=== PATIENT | male | born 1955 | race Asian ===

== ENCOUNTER 2018-11-23 00:31 | Emergency (ER) | payer OTHER ==
[~2018-11-23] VITALS: Ht 170.2 cm; Wt 136.4 kg
[~2018-11-23 00:31] MED LIST: BENA5TAB26 PO; CLON-570 PO; FURO20 PO; METO25 PO
[2018-11-23] MEDS ORDERED: METF-960 PO (00:56)
[2018-11-23] MEDS ORDERED: SITA25 PO (00:56)
[2018-11-23] MEDS ORDERED: FLUCONAZOLE 200 MG TABLET PO ONE (02:00)
[2018-11-23] MEDS ORDERED: KETOROLAC TROMETHAMINE 30 MG/ML VIAL IM ONE (02:00)
[2018-11-23] MEDS ORDERED: NYSTATIN 15 GM POWDER BOTTLE TP ONE (02:00)
[2018-11-23 02:38] VITALS: BP 148/64
== END 2018-11-23 02:39 | disposition home or self-care (01) ==
LOC: EMS 00:31
DX: B37.9 Candidiasis, unspecified (principal); E11.9 Type 2 diabetes mellitus without complications; I25.10 Atherosclerotic heart disease of native coronary artery without angina pectoris; I11.0 Hypertensive heart disease with heart failure; I50.9 Heart failure, unspecified; L40.9 Psoriasis, unspecified; Z79.899 Other long term (current) drug therapy
CPT/HCPCS: 82962; 96372; 99283; J1885

== ENCOUNTER 2019-03-23 15:24 | Inpatient (IN) | payer OTHER ==
[~2019-03-23] VITALS: Ht 170.2 cm; Wt 113.7 kg
[~2019-03-23 15:24] MED LIST changes: -CLON-570 PO; +CLON0.1T83 PO; +METF-960 PO; +SITA25 PO
[2019-03-23 15:41] LABS: GLUCOSE,POINT OF CARE 157 MG/DL (70-110)
[2019-03-23] MEDS ORDERED: SODIUM CHLORIDE 0.9% 1,000 ML IV ONE ×3 (15:48→18:15)
[2019-03-23] MEDS ORDERED: VANCOMYCIN HCL 1 GM/D5% WATER 200 ML IV ONE (16:00)
[2019-03-23] MEDS ORDERED: ACETAMINOPHEN 500 MG TABLET PO ONE (16:00)
[2019-03-23] MEDS ORDERED: PIPERACILLIN/TAZO 3.375 GM/D5W 50 ML IV ONE (16:00)
[2019-03-23 16:57] LABS: HEMATOCRIT 42.9 % (41-53); HEMOGLOBIN 13.9 g/dL (13.5-17.5); MEAN CORPUSCULAR HEMOGLOBIN 30.4 pg (26.0-34.0); MEAN CORPUSCULAR HGB CONC 32.4 G/dL (31.0-37.0); MEAN CORPUSCULAR VOLUME 94 fL (80-100); PLATELET COUNT (AUTO) 183 K/uL (150-450); RED BLOOD CELL COUNT(AUTO) 4.57 MIL/uL (4.50-5.90); RED CELL DISTRIBUTION WIDTH 14.3 % (11.5-14.5)
[2019-03-23 17:01] LABS: ANION GAP 8 mmol/L (8-16); CALCIUM, TOTAL 8.1 mg/dL (8.8-10.5); CARBON DIOXIDE 28 mmol/L (22-29); CHLORIDE 99 mmol/L (98-107); CREATININE 1.08 mg/dL (0.60-1.30); GLOMERULAR FILTR. RATE CALC > 60 mL/min (>60); GLUCOSE,RANDOM 164 mg/dL (70-110); SODIUM SERUM 135 mmol/L (136-145); UREA NITROGEN, BLOOD 14 mg/dL (7-18)
[2019-03-23 17:09] LABS: INR 1.2 (0.9-1.1); PROTHROMBIN TIME 12.2 SEC (9.4-11.6)
[2019-03-23 17:26] LABS: ALANINE AMINOTRANSFERASE 18 U/L (12-78); ALBUMIN 2.8 g/dL (3.4-5.0); ALKALINE PHOSPHATASE 53 U/L (46-116); ASPARTATE AMINOTRANSFERASE 18 U/L (15-37); BILIRUBIN,TOTAL 0.9 mg/dL (0.1-1.0); CREATINE KINASE, TOTAL ONLY 82 U/L (39-308); TOTAL PROTEIN, SERUM 7.5 g/dL (6.4-8.2)
[2019-03-23 17:39] LABS: BAND NEUTROPHILS % (MANUAL) 18 % (0-5); LYMPHOCYTES % (MANUAL) 3 % (22-44); MONOCYTES % (MANUAL) 4 % (2-9); SEGMENTED NEUTROPHILS % 75 % (40-70)
[2019-03-23 17:52] LABS: LACTIC ACID 2.5 mmol/L (0.4-2.0)
[2019-03-23] MEDS ORDERED: ONDANSETRON HCL 4 MG/2 ML VIAL IVP PRN (18:15)
[2019-03-23] MEDS ORDERED: ACETAMINOPHEN 325 MG TABLET PO PRN (18:15)
[2019-03-23] MEDS ORDERED: DEXTROSE 50%-WATER 25 GM/50 ML SYRINGE IVP PRN (18:15)
[2019-03-23] MEDS ORDERED: INSULIN LISPRO 100 UNITS/ML SQ PRN (18:15)
[2019-03-23 19:32] LABS: APPEARANCE,URINE CLOUDY (CLEAR); BILIRUBIN,URINE NEGATIVE (NEGATIVE); GLUCOSE, URINE (UA) NEGATIVE (NEGATIVE); KETONES,URINE NEGATIVE (NEGATIVE); LEUKOCYTE ESTERASE ,URINE NEGATIVE (NEGATIVE); NITRATE,URINE NEGATIVE (NEGATIVE); OCCULT BLOOD,URINE SMALL (NEGATIVE); PH,URINE 6.5 (5.0-8.0); PROTEIN,URINE POS 1+ (NEGATIVE)
[2019-03-23 20:02] LABS: BACTERIA,URINE None Seen /HPF (None Seen); RBC,URINE 0-2 /HPF (0-2); SQUAMOUS EPITHELIAL CELL,UR Few /LPF (None Seen); WBC,URINE 0-2 /HPF (0-5)
[2019-03-23 20:21] VITALS: BP 144/97
[2019-03-23] MEDS ORDERED: OxyCODONE HCL/ACETAMINOPHEN 5-325 MG TABLET PO PRN (20:45)
[2019-03-23] MEDS: MORPHINE SULFATE 2 MG/ML SYRINGE IVP PRN (23:35)
[2019-03-23 23:40] VITALS: BP 138/85
[2019-03-24] MEDS ORDERED: DEXTROSE 50%-WATER 25 GM/50 ML SYRINGE IVP PRN (01:30)
[2019-03-24] MEDS ORDERED: ACETAMINOPHEN 325 MG TABLET PO PRN (01:30)
[2019-03-24] MEDS ORDERED: MAGNESIUM HYDROXIDE SUSPENSION 30 ML UDCUP PO PRN (01:30)
[2019-03-24] MEDS: CloNIDine HCL 0.1 MG TABLET PO SCH ×3 (01:30→20:36)
[2019-03-24] MEDS ORDERED: 0.9% SODIUM CHLORIDE 10 ML SYRINGE IVP PRN (01:30)
[2019-03-24] MEDS ORDERED: ONDANSETRON HCL 4 MG/2 ML VIAL IVP PRN (01:30)
[2019-03-24] MEDS: CeFAZolin 2 GM/DEXTROSE 50 ML IV SCH ×3 (02:45→18:00)
[2019-03-24] MEDS: OxyCODONE HCL/ACETAMINOPHEN 5-325 MG TABLET PO PRN ×3 (02:52→11:45)
[2019-03-24 03:11] LABS: GLUCOMETER DEV NAME(LOC) 5N.1; GLUCOSE,POINT OF CARE 133 MG/DL (70-110)
[2019-03-24] MEDS: MORPHINE SULFATE 2 MG/ML SYRINGE IVP PRN (04:53)
[2019-03-24 05:05] VITALS: BP 163/95
[2019-03-24 06:27] LABS: GLUCOMETER DEV NAME(LOC) 5S.2A; GLUCOSE,POINT OF CARE 134 MG/DL (70-110)
[2019-03-24 07:39] LABS: CHOL/HDL RATIO 2.7 (4.2-7.3)
[2019-03-24] MEDS ORDERED: PNEUMOCOCCAL VACCINE POLYVALENT 0.5 ML VIAL [PPSV23] IM ONE (08:00)
[2019-03-24 08:19] VITALS: BP 160/107
[2019-03-24] MEDS: DOCUSATE SODIUM 100 MG CAPSULE PO SCH ×2 (08:51→20:36)
[2019-03-24] MEDS: FAMOTIDINE 10 MG/ML 2 ML VIAL IVP SCH (08:51)
[2019-03-24] MEDS: BENAZEPRIL HCL 10 MG TABLET PO SCH (08:51)
[2019-03-24] MEDS: METOPROLOL TARTRATE 25 MG TABLET PO SCH (08:51)
[2019-03-24] MEDS: HEPARIN SODIUM,PORCINE 5,000 UNITS/ML VIAL SQ SCH ×3 (11:46→20:36)
[2019-03-24 13:03] VITALS: BP 159/94
[2019-03-24 13:28] LABS: GLUCOMETER DEV NAME(LOC) 5N.1; GLUCOSE,POINT OF CARE 142 MG/DL (70-110)
[2019-03-24 13:28] LABS: GLUCOMETER DEV NAME(LOC) 5N.1; GLUCOSE,POINT OF CARE 146 MG/DL (70-110)
[2019-03-24 15:40] VITALS: BP 161/131
[2019-03-24] MEDS: PIPERACILLIN/TAZO 3.375 GM/D5W 50 ML IV SCH ×2 (18:20→22:10)
[2019-03-24] MEDS: INSULIN LISPRO 100 UNITS/ML SQ PRN (21:18)
[2019-03-25 00:17] VITALS: BP 155/104
[2019-03-25 01:40] LABS: GLUCOMETER DEV NAME(LOC) 5N.1; GLUCOSE,POINT OF CARE 152 MG/DL (70-110)
[2019-03-25 01:40] LABS: GLUCOMETER DEV NAME(LOC) 5N.1; GLUCOSE,POINT OF CARE 112 MG/DL (70-110)
[2019-03-25] MEDS: PIPERACILLIN/TAZO 3.375 GM/D5W 50 ML IV SCH ×4 (05:23→21:28)
[2019-03-25] MEDS: CloNIDine HCL 0.1 MG TABLET PO SCH ×2 (05:54→21:28)
[2019-03-25 07:19] VITALS: BP 138/68
[2019-03-25 07:23] LABS: HEMATOCRIT 43.5 % (41-53); HEMOGLOBIN 14.2 g/dL (13.5-17.5); MEAN CORPUSCULAR HEMOGLOBIN 31.1 pg (26.0-34.0); MEAN CORPUSCULAR HGB CONC 32.7 G/dL (31.0-37.0); MEAN CORPUSCULAR VOLUME 95 fL (80-100); PLATELET COUNT (AUTO) 164 K/uL (150-450); RED BLOOD CELL COUNT(AUTO) 4.58 MIL/uL (4.50-5.90); RED CELL DISTRIBUTION WIDTH 14.4 % (11.5-14.5)
[2019-03-25 07:34] LABS: ANION GAP 9 mmol/L (8-16); CALCIUM, TOTAL 8.9 mg/dL (8.8-10.5); CARBON DIOXIDE 29 mmol/L (22-29); CHLORIDE 99 mmol/L (98-107); CREATININE 1.09 mg/dL (0.60-1.30); GLOMERULAR FILTR. RATE CALC > 60 mL/min (>60); GLUCOSE,RANDOM 118 mg/dL (70-110); POTASSIUM 4.2 mmol/L (3.5-5.1); SODIUM SERUM 137 mmol/L (136-145); UREA NITROGEN, BLOOD 15 mg/dL (7-18)
[2019-03-25] MEDS: DOCUSATE SODIUM 100 MG CAPSULE PO SCH ×2 (08:14→21:28)
[2019-03-25] MEDS: FAMOTIDINE 10 MG/ML 2 ML VIAL IVP SCH (08:15)
[2019-03-25] MEDS: BENAZEPRIL HCL 10 MG TABLET PO SCH (08:15)
[2019-03-25] MEDS: TERBINAFINE HCL 1% 30 GM CREAM TP SCH ×2 (08:15→21:28)
[2019-03-25] MEDS: HEPARIN SODIUM,PORCINE 5,000 UNITS/ML VIAL SQ SCH ×3 (08:15→21:32)
[2019-03-25] MEDS: METOPROLOL TARTRATE 25 MG TABLET PO SCH (08:15)
[2019-03-25] MEDS: OxyCODONE HCL/ACETAMINOPHEN 5-325 MG TABLET PO PRN (08:23)
[2019-03-25 08:57] LABS: BAND NEUTROPHILS % (MANUAL) 11 % (0-5); LYMPHOCYTES % (MANUAL) 7 % (22-44); MONOCYTES % (MANUAL) 6 % (2-9); SEGMENTED NEUTROPHILS % 76 % (40-70)
[2019-03-25 11:15] VITALS: BP 144/77
[2019-03-25] MEDS: INSULIN LISPRO 100 UNITS/ML SQ PRN (12:28)
[2019-03-25 12:31] LABS: GLUCOMETER DEV NAME(LOC) 5N.1; GLUCOSE,POINT OF CARE 113 MG/DL (70-110)
[2019-03-25 16:41] VITALS: BP 158/66
[2019-03-25 17:08] LABS: GLUCOMETER DEV NAME(LOC) 5S.2A; GLUCOSE,POINT OF CARE 154 MG/DL (70-110)
[2019-03-25 20:41] LABS: GLUCOMETER DEV NAME(LOC) 5S.2A; GLUCOSE,POINT OF CARE 115 MG/DL (70-110)
[2019-03-25 22:39] VITALS: BP 182/110
[2019-03-25 23:15] VITALS: BP 170/90
[2019-03-26] VITALS (7 sets, daily range): BP systolic 121–212; BP diastolic 67–133
[2019-03-26] MEDS: HydrALAZINE HCL 20 MG/ML VIAL IVP PRN ×2 (00:02→07:50)
[2019-03-26] MEDS: OxyCODONE HCL/ACETAMINOPHEN 5-325 MG TABLET PO PRN ×2 (00:04→06:47)
[2019-03-26] MEDS: PIPERACILLIN/TAZO 3.375 GM/D5W 50 ML IV SCH ×4 (04:41→21:16)
[2019-03-26] MEDS: MORPHINE SULFATE 2 MG/ML SYRINGE IVP PRN (04:47)
[2019-03-26 06:21] LABS: GLUCOMETER DEV NAME(LOC) 5N.1; GLUCOSE,POINT OF CARE 103 MG/DL (70-110)
[2019-03-26] MEDS: INSULIN LISPRO 100 UNITS/ML SQ PRN (06:56)
[2019-03-26 07:49] LABS: ABG A-A DIFF O2 481.9 mmHg (10-20.0); ABG CARBOXYHEMOGLOBIN 1.3 % (0.0-1.5); ABG HCO3 19.1 mmol/L (22.0-26.0); ABG METHEMOGLOBIN 0.3 % (0.0-1.5); ABG OXYGEN CONTENT 20.6 mL/dL (15.0-23.0); ABG OXYGEN SATURATION 95.9 % (95.0-98.0); ABG OXYHEMOGLOBIN 94.4 % (94.0-100.0); ABG TOTAL HEMOGLOBIN 15.4 G/dL (12.0-18.0); PO2, ARTERIAL BG 112.5 mmHg (79.0-87.0); SOURCE, BLOOD GAS ARTERIAL; TEMPERATURE, FAHRENHEIT, BG 98.3 FAHREN (96.0-98.6)
[2019-03-26] MEDS ORDERED: NALOXONE HCL 0.4 MG/ML VIAL ONE (07:51)
[2019-03-26 08:24] LABS: BASOPHILS % (AUTO) 0.2 % (0.0-2.0); EOSINOPHILS % (AUTO) 0.1 % (1.0-6.0); HEMATOCRIT 47.3 % (41-53); HEMOGLOBIN 14.9 g/dL (13.5-17.5); LYMPHOCYTES # (AUTO) 0.8 K/uL (1.0-4.8); LYMPHOCYTES % (AUTO) 7.2 % (22.0-44.0); MEAN CORPUSCULAR HEMOGLOBIN 30.9 pg (26.0-34.0); MEAN CORPUSCULAR HGB CONC 31.5 G/dL (31.0-37.0); MEAN CORPUSCULAR VOLUME 98 fL (80-100); MONOCYTES # (AUTO) 1.4 K/uL (0.1-1.0); MONOCYTES % (AUTO) 12.1 % (2.0-9.0); NEUTROPHILS # (AUTO) 9.2 K/uL (1.8-7.7); NEUTROPHILS % (AUTO) 80.4 % (40.0-70.0); PLATELET COUNT (AUTO) 179 K/uL (150-450); RED BLOOD CELL COUNT(AUTO) 4.81 MIL/uL (4.50-5.90); RED CELL DISTRIBUTION WIDTH 14.5 % (11.5-14.5)
[2019-03-26 08:33] LABS: ANION GAP 16 mmol/L (8-16); CALCIUM, TOTAL 8.5 mg/dL (8.8-10.5); CARBON DIOXIDE 23 mmol/L (22-29); CHLORIDE 97 mmol/L (98-107); CREATININE 1.23 mg/dL (0.60-1.30); GLOMERULAR FILTR. RATE CALC 59 mL/min (>60); GLUCOSE,RANDOM 197 mg/dL (70-110); POTASSIUM 4.4 mmol/L (3.5-5.1); SODIUM SERUM 136 mmol/L (136-145); UREA NITROGEN, BLOOD 18 mg/dL (7-18)
[2019-03-26 08:46] LABS: LACTIC ACID 4.1 mmol/L (0.4-2.0)
[2019-03-26 08:49] LABS: B-TYPE NATRIURETIC PEPTIDE 109 pg/mL (0-100)
[2019-03-26] MEDS ORDERED: PROPOFOL 1000 MG/ISO-OSM 100 ML IV ONE (08:52)
[2019-03-26] MEDS: CloNIDine HCL 0.1 MG TABLET PO SCH ×2 (09:00→21:00)
[2019-03-26] MEDS: DOCUSATE SODIUM 100 MG CAPSULE PO SCH ×2 (09:00→21:00)
[2019-03-26] MEDS: METOPROLOL TARTRATE 25 MG TABLET PO SCH (09:00)
[2019-03-26] MEDS: FAMOTIDINE 10 MG/ML 2 ML VIAL IVP SCH (09:00)
[2019-03-26] MEDS: BENAZEPRIL HCL 10 MG TABLET PO SCH (09:00)
[2019-03-26] MEDS ORDERED: ROCURONIUM BROMIDE 10 MG/ML 5 ML VIAL ONE (09:01)
[2019-03-26] MEDS: PROPOFOL 1000 MG/ISO-OSM 100 ML IV PRN ×4 (09:28→22:38)
[2019-03-26] MEDS: TERBINAFINE HCL 1% 30 GM CREAM TP SCH ×2 (09:31→21:16)
[2019-03-26] MEDS: HEPARIN SODIUM,PORCINE 5,000 UNITS/ML VIAL SQ SCH ×3 (10:00→21:15)
[2019-03-26 10:25] LABS: GLUCOMETER DEV NAME(LOC) 5N.1; GLUCOSE,POINT OF CARE 209 MG/DL (70-110)
[2019-03-26] MEDS ORDERED: SODIUM CHLORIDE 0.9% 250 ML IV ONE (10:27)
[2019-03-26 11:08] LABS: ABG A-A DIFF O2 556.4 mmHg (10-20.0); ABG CARBOXYHEMOGLOBIN 1.1 % (0.0-1.5); ABG HCO3 23.5 mmol/L (22.0-26.0); ABG METHEMOGLOBIN 0.2 % (0.0-1.5); ABG OXYGEN CONTENT 17.7 mL/dL (15.0-23.0); ABG OXYGEN SATURATION 90.9 % (95.0-98.0); ABG OXYHEMOGLOBIN 89.7 % (94.0-100.0); PO2, ARTERIAL BG 74.8 mmHg (79.0-87.0); SOURCE, BLOOD GAS ARTERIAL; TEMPERATURE, FAHRENHEIT, BG 100.5 FAHREN (96.0-98.6)
[2019-03-26 11:11] LABS: ABG PCO2 119 mmHg (35-45); ABG PH 6.994 (7.35-7.450); SITE, BLOOD GAS RT RADIAL
[2019-03-26 11:12] LABS: ABG PH 7.189 (7.35-7.450)
[2019-03-26 11:12] LABS: O2 DEVICE,BLOOD GAS NON REBREATHER (ROOM AIR)
[2019-03-26 11:13] LABS: ABG PCO2 79 mmHg (35-45); O2 DEVICE,BLOOD GAS VENTILATOR (ROOM AIR); PEEP,BG 5 cm H2O; SITE, BLOOD GAS RT RADIAL; VT, ABG 550 ml
[2019-03-26] MEDS ORDERED: LIDOCAINE 2% 5 ML JELLY TP ONE (12:00)
[2019-03-26] MEDS ORDERED: ETOMIDATE 2 MG/ML 10 ML VIAL IVP ONE (12:00)
[2019-03-26 12:07] LABS: GLUCOSE,POINT OF CARE 122 MG/DL (70-110)
[2019-03-26] MEDS: VANCOMYCIN HCL 1 GM/D5% WATER 200 ML IV SCH ×2 (18:53→21:15)
[2019-03-26] MEDS ORDERED: SODIUM CHLORIDE 0.9% 500 ML IV ONE (19:05)
[2019-03-26 19:43] LABS: BASE EXCESS,VENOUS BLOOD GAS 4.8 (-3.3-1.2); HCO3,VENOUS BLOOD GAS 27.3 (21.0-28.0); PCO2,VENOUS BLOOD GAS 54 (40-45); PH,VENOUS BLOOD GAS 7.362 (7.360-7.410); TEMPERATURE, FAHRENHEIT, BG 98.5 FAHREN (96.0-98.6)
[2019-03-26 20:12] LABS: GLUCOMETER DEV NAME(LOC) 5S.2A; GLUCOSE,POINT OF CARE 139 MG/DL (70-110)
[2019-03-26] MEDS: LEVOFLOXACIN 750 MG/D5% WATER 150 ML IV SCH (20:40)
[2019-03-26 21:29] LABS: SITE, BLOOD GAS CPL; SOURCE, BLOOD GAS R IJ
[2019-03-26 21:30] LABS: TOTAL HEMOGLOBIN,VENOUS BGAS 13.1 (12.0-18.0)
[2019-03-27] VITALS (10 sets, daily range): BP systolic 140–182; BP diastolic 75–107
[2019-03-27] MEDS: HydrALAZINE HCL 20 MG/ML VIAL IVP PRN ×3 (00:59→17:17)
[2019-03-27] MEDS ORDERED: 0.9% SODIUM CHLORIDE 15 ML NEB SOLUTION NEB ONE (01:41)
[2019-03-27] MEDS: PROPOFOL 1000 MG/ISO-OSM 100 ML IV PRN ×9 (01:41→22:02)
[2019-03-27] MEDS: MORPHINE SULFATE 2 MG/ML SYRINGE IVP PRN ×3 (01:47→20:44)
[2019-03-27] MEDS: PIPERACILLIN/TAZO 3.375 GM/D5W 50 ML IV SCH ×4 (03:49→22:32)
[2019-03-27 05:19] LABS: B-TYPE NATRIURETIC PEPTIDE 50 pg/mL (0-100)
[2019-03-27 05:30] LABS: ANION GAP 7 mmol/L (8-16); CALCIUM, TOTAL 8.2 mg/dL (8.8-10.5); CARBON DIOXIDE 31 mmol/L (22-29); CHLORIDE 98 mmol/L (98-107); GLOMERULAR FILTR. RATE CALC > 60 mL/min (>60); GLUCOSE,RANDOM 125 mg/dL (70-110); PHOSPHORUS 2.1 mg/dL (2.5-4.9); POTASSIUM 3.5 mmol/L (3.5-5.1); SODIUM SERUM 136 mmol/L (136-145); THYROID STIMULATING HORMONE 0.48 uIU/mL (0.36-3.74); UREA NITROGEN, BLOOD 19 mg/dL (7-18)
[2019-03-27] MEDS: VANCOMYCIN HCL 1.5 GM in DEXTROSE 5%-WATER 250 ML IV SCH ×2 (06:17→18:47)
[2019-03-27 06:20] LABS: GLUCOSE,POINT OF CARE 129 MG/DL (70-110)
[2019-03-27 06:58] LABS: BASOPHILS % (AUTO) 0.3 % (0.0-2.0); HEMATOCRIT 37.5 % (41-53); HEMOGLOBIN 12.4 g/dL (13.5-17.5); LYMPHOCYTES # (AUTO) 0.4 K/uL (1.0-4.8); LYMPHOCYTES % (AUTO) 6.4 % (22.0-44.0); MEAN CORPUSCULAR HEMOGLOBIN 30.9 pg (26.0-34.0); MEAN CORPUSCULAR VOLUME 94 fL (80-100); MONOCYTES # (AUTO) 1.1 K/uL (0.1-1.0); MONOCYTES % (AUTO) 18.3 % (2.0-9.0); NEUTROPHILS # (AUTO) 4.6 K/uL (1.8-7.7); PLATELET COUNT (AUTO) 173 K/uL (150-450); RED CELL DISTRIBUTION WIDTH 14.4 % (11.5-14.5)
[2019-03-27 07:00] LABS: GLUCOSE,POINT OF CARE 114 MG/DL (70-110)
[2019-03-27] MEDS ORDERED: VANCOMYCIN HCL 1 GM/D5% WATER 200 ML IV SCH (07:00)
[2019-03-27 08:00] LABS: ABG A-A DIFF O2 85.6 mmHg (10-20.0); ABG BASE EXCESS 7.7 mmol/L (-2.0-3.0); ABG CARBOXYHEMOGLOBIN 1.2 % (0.0-1.5); ABG HCO3 30.5 mmol/L (22.0-26.0); ABG METHEMOGLOBIN 0.1 % (0.0-1.5); ABG OXYGEN CONTENT 18.9 mL/dL (15.0-23.0); ABG OXYGEN SATURATION 98.1 % (95.0-98.0); ABG OXYHEMOGLOBIN 96.8 % (94.0-100.0); ABG PCO2 48 mmHg (35-45); ABG PH 7.443 (7.35-7.450); ABG TOTAL HEMOGLOBIN 13.8 G/dL (12.0-18.0); O2 DEVICE,BLOOD GAS VENTILATOR (ROOM AIR); PEEP,BG 8 cm H2O; PO2, ARTERIAL BG 108.6 mmHg (79.0-87.0); SITE, BLOOD GAS RT RADIAL; SOURCE, BLOOD GAS ARTERIAL; TEMPERATURE, FAHRENHEIT, BG 98.6 FAHREN (96.0-98.6); VT, ABG 550 ml
[2019-03-27] MEDS: FAMOTIDINE 10 MG/ML 2 ML VIAL IVP SCH (08:11)
[2019-03-27] MEDS: HEPARIN SODIUM,PORCINE 5,000 UNITS/ML VIAL SQ SCH ×3 (08:11→20:52)
[2019-03-27] MEDS: TERBINAFINE HCL 1% 30 GM CREAM TP SCH ×2 (08:14→20:52)
[2019-03-27 08:33] LABS: APPEARANCE,URINE CLOUDY (CLEAR); GLUCOSE, URINE (UA) NEGATIVE (NEGATIVE); KETONES,URINE TRACE mg/dL (NEGATIVE); LEUKOCYTE ESTERASE ,URINE NEGATIVE (NEGATIVE); NITRATE,URINE NEGATIVE (NEGATIVE); OCCULT BLOOD,URINE LARGE (NEGATIVE); PROTEIN,URINE SEE CONFIRM (NEGATIVE)
[2019-03-27 08:34] LABS: BILIRUBIN,URINE PRELIM. POSITIVE (NEGATIVE)
[2019-03-27 08:52] LABS: BACTERIA,URINE Few /HPF (None Seen); RBC,URINE 51-100 /HPF (0-2); SQUAMOUS EPITHELIAL CELL,UR Few /LPF (None Seen); SULFOSALICYLIC ACID,URINE 3+ (Negative); WBC,URINE 0-2 /HPF (0-5)
[2019-03-27] MEDS: METOPROLOL TARTRATE 25 MG TABLET PO SCH (09:00)
[2019-03-27] MEDS: BENAZEPRIL HCL 10 MG TABLET PO SCH (09:00)
[2019-03-27] MEDS: CloNIDine HCL 0.1 MG TABLET PO SCH ×3 (09:00→21:47)
[2019-03-27] MEDS: DOCUSATE SODIUM 100 MG CAPSULE PO SCH ×2 (09:00→21:00)
[2019-03-27] MEDS ORDERED: IOVERSOL 350 MG/ML 150 ML VIAL ONE (11:51)
[2019-03-27] MEDS ORDERED: SODIUM CHLORIDE 0.9% 100 ML ONE (11:51)
[2019-03-27] MEDS ORDERED: SODIUM CHLORIDE 0.9% 500 ML IV ONE (12:20)
[2019-03-27 15:19] LABS: GLUCOSE,POINT OF CARE 137 MG/DL (70-110)
[2019-03-27] MEDS ORDERED: BENA10TA77 PO (17:27)
[2019-03-27] MEDS: NiCARDipine HCL 25 MG in DEXTROSE 5%-WATER 240 ML IV PRN ×3 (17:53→22:14)
[2019-03-27] MEDS: METOPROLOL TARTRATE 5 MG/5 ML VIAL IVP SCH (18:25)
[2019-03-27] MEDS: INSULIN LISPRO 100 UNITS/ML SQ PRN (18:48)
[2019-03-27 19:38] LABS: GLUCOSE,POINT OF CARE 140 MG/DL (70-110)
[2019-03-27] MEDS: LEVOFLOXACIN 750 MG/D5% WATER 150 ML IV SCH (20:00)
[2019-03-27] MEDS ORDERED: METOPROLOL TARTRATE 5 MG/5 ML VIAL IVP SCH (21:00)
[2019-03-28] VITALS: BP 143/87
[2019-03-28] MEDS: METOPROLOL TARTRATE 5 MG/5 ML VIAL IVP SCH ×3 (00:03→16:06)
[2019-03-28] MEDS: INSULIN LISPRO 100 UNITS/ML SQ PRN ×3 (00:25→17:46)
[2019-03-28] MEDS: PROPOFOL 1000 MG/ISO-OSM 100 ML IV PRN ×9 (01:00→22:12)
[2019-03-28] MEDS ORDERED: SODIUM CHLORIDE 0.9% 250 ML IV ONE (02:01)
[2019-03-28 03:47] LABS: GLUCOSE,POINT OF CARE 221 MG/DL (70-110)
[2019-03-28 04:00] VITALS: BP 132/80
[2019-03-28 04:49] LABS: BASOPHILS % (AUTO) 0.1 % (0.0-2.0); EOSINOPHILS % (AUTO) 0.3 % (1.0-6.0); HEMATOCRIT 38.8 % (41-53); HEMOGLOBIN 12.8 g/dL (13.5-17.5); LYMPHOCYTES # (AUTO) 0.3 K/uL (1.0-4.8); LYMPHOCYTES % (AUTO) 4.7 % (22.0-44.0); MEAN CORPUSCULAR HEMOGLOBIN 30.3 pg (26.0-34.0); MEAN CORPUSCULAR HGB CONC 32.9 G/dL (31.0-37.0); MEAN CORPUSCULAR VOLUME 92 fL (80-100); MONOCYTES # (AUTO) 1.2 K/uL (0.1-1.0); MONOCYTES % (AUTO) 19.1 % (2.0-9.0); NEUTROPHILS # (AUTO) 4.9 K/uL (1.8-7.7); NEUTROPHILS % (AUTO) 75.8 % (40.0-70.0); PLATELET COUNT (AUTO) 197 K/uL (150-450); RED BLOOD CELL COUNT(AUTO) 4.22 MIL/uL (4.50-5.90); RED CELL DISTRIBUTION WIDTH 14.4 % (11.5-14.5)
[2019-03-28 04:56] LABS: GLUCOSE,POINT OF CARE 124 MG/DL (70-110)
[2019-03-28] MEDS: PIPERACILLIN/TAZO 3.375 GM/D5W 50 ML IV SCH ×2 (05:16→10:15)
[2019-03-28 05:17] LABS: CALCIUM, TOTAL 8.3 mg/dL (8.8-10.5); CREATININE 2.19 mg/dL (0.60-1.30); POTASSIUM 3.5 mmol/L (3.5-5.1); VANCOMYCIN,RANDOM 27.9 mcg/mL (25.0-50.0)
[2019-03-28] MEDS: NiCARDipine HCL 25 MG in DEXTROSE 5%-WATER 240 ML IV PRN ×7 (06:18→21:12)
[2019-03-28] MEDS: VANCOMYCIN HCL 1.5 GM in DEXTROSE 5%-WATER 250 ML IV SCH (06:49)
[2019-03-28 08:00] VITALS: BP 181/88
[2019-03-28 08:21] LABS: ABG A-A DIFF O2 100.2 mmHg (10-20.0); ABG BASE EXCESS 5.9 mmol/L (-2.0-3.0); ABG CARBOXYHEMOGLOBIN 0.6 % (0.0-1.5); ABG HCO3 29.4 mmol/L (22.0-26.0); ABG METHEMOGLOBIN 0.3 % (0.0-1.5); ABG OXYGEN CONTENT 18.6 mL/dL (15.0-23.0); ABG OXYGEN SATURATION 97.5 % (95.0-98.0); ABG OXYHEMOGLOBIN 96.6 % (94.0-100.0); ABG PCO2 43 mmHg (35-45); ABG PH 7.462 (7.35-7.450); ABG TOTAL HEMOGLOBIN 13.6 G/dL (12.0-18.0); PO2, ARTERIAL BG 99.3 mmHg (79.0-87.0); SOURCE, BLOOD GAS ARTERIAL; TEMPERATURE, FAHRENHEIT, BG 99.6 FAHREN (96.0-98.6)
[2019-03-28 08:22] LABS: O2 DEVICE,BLOOD GAS VENTILATOR (ROOM AIR); PEEP,BG 8 cm H2O; SITE, BLOOD GAS LFT RADIAL; VT, ABG 550 ml
[2019-03-28 08:23] LABS: SPONTANEOUS VT, BG 504 ml
[2019-03-28] MEDS: CloNIDine HCL 0.1 MG TABLET PO SCH ×2 (08:59→20:24)
[2019-03-28] MEDS: DOCUSATE SODIUM 100 MG CAPSULE PO SCH ×2 (08:59→20:25)
[2019-03-28] MEDS: BENAZEPRIL HCL 10 MG TABLET PO SCH (09:00)
[2019-03-28] MEDS: FAMOTIDINE 10 MG/ML 2 ML VIAL IVP SCH (09:20)
[2019-03-28] MEDS: HEPARIN SODIUM,PORCINE 5,000 UNITS/ML VIAL SQ SCH ×3 (09:20→20:25)
[2019-03-28] MEDS: TERBINAFINE HCL 1% 30 GM CREAM TP SCH ×2 (09:21→22:10)
[2019-03-28 12:00] VITALS: BP 160/81
[2019-03-28 13:27] LABS: GLUCOSE,POINT OF CARE 166 MG/DL (70-110)
[2019-03-28 16:00] VITALS: BP 164/83
[2019-03-28] MEDS: CeFAZolin 2 GM/DEXTROSE 50 ML IV SCH (16:06)
[2019-03-28 17:32] LABS: GLUCOSE,POINT OF CARE 146 MG/DL (70-110)
[2019-03-28 20:00] VITALS: BP 182/97
[2019-03-29] VITALS (9 sets, daily range): BP systolic 127–171; BP diastolic 71–193
[2019-03-29] MEDS: PROPOFOL 1000 MG/ISO-OSM 100 ML IV PRN ×10 (00:43→23:19)
[2019-03-29] MEDS: METOPROLOL TARTRATE 5 MG/5 ML VIAL IVP SCH ×4 (00:55→23:19)
[2019-03-29 01:00] LABS: GLUCOSE,POINT OF CARE 138 MG/DL (70-110)
[2019-03-29] MEDS: INSULIN LISPRO 100 UNITS/ML SQ PRN ×3 (01:11→17:41)
[2019-03-29] MEDS: NiCARDipine HCL 25 MG in DEXTROSE 5%-WATER 240 ML IV PRN ×6 (01:26→21:14)
[2019-03-29] MEDS: CeFAZolin 2 GM/DEXTROSE 50 ML IV SCH ×2 (04:32→15:33)
[2019-03-29 05:05] LABS: CALCIUM, TOTAL 7.8 mg/dL (8.8-10.5); CREATININE 2.85 mg/dL (0.60-1.30); POTASSIUM 3.7 mmol/L (3.5-5.1)
[2019-03-29] MEDS ORDERED: VANCOMYCIN HCL 1 GM/D5% WATER 200 ML IV SCH (07:00)
[2019-03-29 07:16] LABS: GLUCOSE,POINT OF CARE 142 MG/DL (70-110)
[2019-03-29] MEDS ORDERED: SODIUM CHLORIDE 0.9% 250 ML IV ONE (08:18)
[2019-03-29] MEDS: DOCUSATE SODIUM 100 MG CAPSULE PO SCH ×2 (09:00→20:51)
[2019-03-29] MEDS: FAMOTIDINE 10 MG/ML 2 ML VIAL IVP SCH (09:13)
[2019-03-29] MEDS: CloNIDine HCL 0.1 MG TABLET PO SCH ×2 (09:14→20:51)
[2019-03-29] MEDS: BENAZEPRIL HCL 10 MG TABLET PO SCH (09:14)
[2019-03-29] MEDS: HEPARIN SODIUM,PORCINE 5,000 UNITS/ML VIAL SQ SCH ×3 (09:14→20:51)
[2019-03-29 09:15] LABS: ABG A-A DIFF O2 105.5 mmHg (10-20.0); ABG BASE EXCESS 2.1 mmol/L (-2.0-3.0); ABG CARBOXYHEMOGLOBIN 0.7 % (0.0-1.5); ABG HCO3 26.4 mmol/L (22.0-26.0); ABG METHEMOGLOBIN 0.3 % (0.0-1.5); ABG OXYGEN CONTENT 18.7 mL/dL (15.0-23.0); ABG OXYGEN SATURATION 97.7 % (95.0-98.0); ABG OXYHEMOGLOBIN 96.7 % (94.0-100.0); ABG PCO2 38 mmHg (35-45); ABG PH 7.458 (7.35-7.450); ABG TOTAL HEMOGLOBIN 13.7 G/dL (12.0-18.0); PO2, ARTERIAL BG 100.5 mmHg (79.0-87.0); SOURCE, BLOOD GAS ARTERIAL; TEMPERATURE, FAHRENHEIT, BG 98.6 FAHREN (96.0-98.6)
[2019-03-29 09:16] LABS: O2 DEVICE,BLOOD GAS VENTILATOR (ROOM AIR); PEEP,BG 5 cm H2O; SITE, BLOOD GAS RT RADIAL; VT, ABG 550 ml
[2019-03-29] MEDS: TERBINAFINE HCL 1% 30 GM CREAM TP SCH ×2 (09:27→20:52)
[2019-03-29 12:50] LABS: GLUCOSE,POINT OF CARE 170 MG/DL (70-110)
[2019-03-29 17:45] LABS: GLUCOSE,POINT OF CARE 144 MG/DL (70-110)
[2019-03-29] MEDS: LEVOFLOXACIN 750 MG/D5% WATER 150 ML IV SCH (20:51)
[2019-03-29] MEDS: OxyCODONE HCL/ACETAMINOPHEN 5-325 MG TABLET PO PRN (21:13)
[2019-03-30] VITALS (12 sets, daily range): BP systolic 115–167; BP diastolic 77–109
[2019-03-30 01:48] LABS: GLUCOSE,POINT OF CARE 114 MG/DL (70-110)
[2019-03-30] MEDS: PROPOFOL 1000 MG/ISO-OSM 100 ML IV PRN ×7 (01:52→20:57)
[2019-03-30] MEDS: CeFAZolin 2 GM/DEXTROSE 50 ML IV SCH (03:01)
[2019-03-30] MEDS: OxyCODONE HCL/ACETAMINOPHEN 5-325 MG TABLET PO PRN ×3 (03:27→17:06)
[2019-03-30 05:33] LABS: BASOPHILS % (AUTO) 0.1 % (0.0-2.0); EOSINOPHILS % (AUTO) 4.2 % (1.0-6.0); HEMATOCRIT 37.5 % (41-53); HEMOGLOBIN 12.6 g/dL (13.5-17.5); LYMPHOCYTES # (AUTO) 0.5 K/uL (1.0-4.8); LYMPHOCYTES % (AUTO) 7.7 % (22.0-44.0); MEAN CORPUSCULAR HGB CONC 33.7 G/dL (31.0-37.0); MEAN CORPUSCULAR VOLUME 92 fL (80-100); MONOCYTES # (AUTO) 0.7 K/uL (0.1-1.0); NEUTROPHILS # (AUTO) 4.6 K/uL (1.8-7.7); PLATELET COUNT (AUTO) 203 K/uL (150-450); RED BLOOD CELL COUNT(AUTO) 4.08 MIL/uL (4.50-5.90); RED CELL DISTRIBUTION WIDTH 14.3 % (11.5-14.5)
[2019-03-30 05:41] LABS: CALCIUM, TOTAL 7.3 mg/dL (8.8-10.5); CREATININE 4.17 mg/dL (0.60-1.30); MAGNESIUM 1.7 mg/dL (1.80-2.40); PHOSPHORUS 6.8 mg/dL (2.5-4.9); POTASSIUM 3.7 mmol/L (3.5-5.1)
[2019-03-30 06:38] LABS: GLUCOSE,POINT OF CARE 111 MG/DL (70-110)
[2019-03-30] MEDS: METOPROLOL TARTRATE 5 MG/5 ML VIAL IVP SCH ×3 (08:32→23:50)
[2019-03-30] MEDS: CloNIDine HCL 0.1 MG TABLET PO SCH ×2 (08:33→20:56)
[2019-03-30] MEDS: HEPARIN SODIUM,PORCINE 5,000 UNITS/ML VIAL SQ SCH ×3 (08:33→20:56)
[2019-03-30] MEDS: FAMOTIDINE 10 MG/ML 2 ML VIAL IVP SCH (08:33)
[2019-03-30] MEDS: DOCUSATE SODIUM 100 MG CAPSULE PO SCH ×2 (08:33→20:56)
[2019-03-30] MEDS: TERBINAFINE HCL 1% 30 GM CREAM TP SCH ×2 (08:34→20:57)
[2019-03-30 11:38] LABS: ABG A-A DIFF O2 100.6 mmHg (10-20.0); ABG BASE EXCESS 0.3 mmol/L (-2.0-3.0); ABG CARBOXYHEMOGLOBIN 0.5 % (0.0-1.5); ABG HCO3 24.8 mmol/L (22.0-26.0); ABG METHEMOGLOBIN 0.3 % (0.0-1.5); ABG OXYGEN CONTENT 17.9 mL/dL (15.0-23.0); ABG OXYGEN SATURATION 97.2 % (95.0-98.0); ABG OXYHEMOGLOBIN 96.4 % (94.0-100.0); ABG PCO2 41 mmHg (35-45); ABG PH 7.402 (7.35-7.450); ABG TOTAL HEMOGLOBIN 13.1 G/dL (12.0-18.0); PO2, ARTERIAL BG 100.6 mmHg (79.0-87.0); SOURCE, BLOOD GAS ARTERIAL; TEMPERATURE, FAHRENHEIT, BG 99.2 FAHREN (96.0-98.6)
[2019-03-30 11:39] LABS: O2 DEVICE,BLOOD GAS VENTILATOR (ROOM AIR); PEEP,BG 5 cm H2O; SITE, BLOOD GAS LFT RADIAL; VT, ABG 550 ml
[2019-03-30] MEDS: CeFAZolin 1 GM/DEXTROSE 50 ML IV SCH (14:03)
[2019-03-30] MEDS: HydrALAZINE HCL 20 MG/ML VIAL IVP PRN (16:33)
[2019-03-30 17:14] LABS: GLUCOSE,POINT OF CARE 119 MG/DL (70-110)
[2019-03-30 19:02] LABS: CREATININE,URINE RANDOM 62.9 mg/dL (30.0-125.0)
[2019-03-31] VITALS (9 sets, daily range): BP systolic 125–162; BP diastolic 65–109
[2019-03-31 00:27] LABS: GLUCOSE,POINT OF CARE 136 MG/DL (70-110)
[2019-03-31] MEDS: INSULIN LISPRO 100 UNITS/ML SQ PRN ×2 (00:31→23:06)
[2019-03-31] MEDS: PROPOFOL 1000 MG/ISO-OSM 100 ML IV PRN ×8 (01:06→21:20)
[2019-03-31] MEDS: CeFAZolin 1 GM/DEXTROSE 50 ML IV SCH ×2 (03:14→16:44)
[2019-03-31] MEDS ORDERED: SODIUM CHLORIDE 0.9% 250 ML IV ONE (03:54)
[2019-03-31 05:50] LABS: BASOPHILS % (AUTO) 0.5 % (0.0-2.0); EOSINOPHILS % (AUTO) 5.3 % (1.0-6.0); HEMATOCRIT 38.3 % (41-53); HEMOGLOBIN 12.8 g/dL (13.5-17.5); LYMPHOCYTES # (AUTO) 0.5 K/uL (1.0-4.8); MEAN CORPUSCULAR HEMOGLOBIN 30.6 pg (26.0-34.0); MEAN CORPUSCULAR HGB CONC 33.4 G/dL (31.0-37.0); MEAN CORPUSCULAR VOLUME 92 fL (80-100); MONOCYTES # (AUTO) 0.8 K/uL (0.1-1.0); MONOCYTES % (AUTO) 12.1 % (2.0-9.0); NEUTROPHILS # (AUTO) 4.9 K/uL (1.8-7.7); NEUTROPHILS % (AUTO) 74.1 % (40.0-70.0); PLATELET COUNT (AUTO) 205 K/uL (150-450); RED BLOOD CELL COUNT(AUTO) 4.19 MIL/uL (4.50-5.90); RED CELL DISTRIBUTION WIDTH 14.3 % (11.5-14.5)
[2019-03-31 06:04] LABS: CALCIUM, TOTAL 7.5 mg/dL (8.8-10.5); CREATININE 5.5 mg/dL (0.60-1.30); POTASSIUM 4.1 mmol/L (3.5-5.1)
[2019-03-31 07:05] LABS: GLUCOSE,POINT OF CARE 111 MG/DL (70-110)
[2019-03-31] MEDS: CALCIUM ACETATE 667 MG CAPSULE PO SCH ×3 (08:00→17:30)
[2019-03-31] MEDS: HEPARIN SODIUM,PORCINE 5,000 UNITS/ML VIAL SQ SCH ×3 (09:06→21:07)
[2019-03-31] MEDS: METOPROLOL TARTRATE 5 MG/5 ML VIAL IVP SCH ×2 (09:06→16:44)
[2019-03-31] MEDS: FAMOTIDINE 10 MG/ML 2 ML VIAL IVP SCH (09:06)
[2019-03-31] MEDS: CloNIDine HCL 0.1 MG TABLET PO SCH ×2 (09:06→21:07)
[2019-03-31] MEDS: DOCUSATE SODIUM 100 MG CAPSULE PO SCH ×2 (09:06→21:07)
[2019-03-31] MEDS: TERBINAFINE HCL 1% 30 GM CREAM TP SCH ×2 (09:10→21:03)
[2019-03-31 10:16] LABS: GLUCOSE,POINT OF CARE 104 MG/DL (70-110)
[2019-03-31] MEDS: AmLODIPine BESYLATE 5 MG TABLET PO SCH (11:00)
[2019-03-31] MEDS: OxyCODONE HCL/ACETAMINOPHEN 5-325 MG TABLET PO PRN (16:32)
[2019-03-31 17:35] LABS: ABG HCO3 22.1 mmol/L (22.0-26.0); ABG METHEMOGLOBIN 0.3 % (0.0-1.5); SOURCE, BLOOD GAS ARTERIAL; TEMPERATURE, FAHRENHEIT, BG 98.6 FAHREN (96.0-98.6)
[2019-03-31 17:37] LABS: ABG A-A DIFF O2 112.3 mmHg (10-20.0); ABG BASE EXCESS -2.9 mmol/L (-2.0-3.0); ABG OXYGEN SATURATION 96.3 % (95.0-98.0); ABG PCO2 42 mmHg (35-45); ABG PH 7.353 (7.35-7.450); ABG TOTAL HEMOGLOBIN 13.4 G/dL (12.0-18.0); PO2, ARTERIAL BG 88.8 mmHg (79.0-87.0); SITE, BLOOD GAS LFT RADIAL
[2019-03-31 17:38] LABS: O2 DEVICE,BLOOD GAS VENTILATOR (ROOM AIR); PEEP,BG 5 cm H2O; VT, ABG 550 ml
[2019-03-31 17:39] LABS: SPONTANEOUS VT, BG 508 ml
[2019-03-31 18:43] LABS: GLUCOSE,POINT OF CARE 128 MG/DL (70-110)
[2019-03-31] MEDS: LEVOFLOXACIN 750 MG/D5% WATER 150 ML IV SCH (20:31)
[2019-03-31 23:17] LABS: GLUCOSE,POINT OF CARE 130 MG/DL (70-110)
[2019-04-01] VITALS (8 sets, daily range): BP systolic 112–180; BP diastolic 7–107
[2019-04-01] MEDS: PROPOFOL 1000 MG/ISO-OSM 100 ML IV PRN ×11 (00:15→23:43)
[2019-04-01] MEDS: METOPROLOL TARTRATE 25 MG TABLET PO SCH ×3 (00:28→20:12)
[2019-04-01] MEDS ORDERED: SODIUM CHLORIDE 0.9% 250 ML IV ONE (02:42)
[2019-04-01] MEDS: CeFAZolin 1 GM/DEXTROSE 50 ML IV SCH ×2 (02:44→15:16)
[2019-04-01] MEDS: INSULIN LISPRO 100 UNITS/ML SQ PRN ×2 (05:19→23:33)
[2019-04-01 05:37] LABS: BASOPHILS % (AUTO) 0.6 % (0.0-2.0); EOSINOPHILS % (AUTO) 6.1 % (1.0-6.0); HEMATOCRIT 37.4 % (41-53); HEMOGLOBIN 12.3 g/dL (13.5-17.5); LYMPHOCYTES # (AUTO) 0.5 K/uL (1.0-4.8); LYMPHOCYTES % (AUTO) 6.7 % (22.0-44.0); MEAN CORPUSCULAR HEMOGLOBIN 30.1 pg (26.0-34.0); MEAN CORPUSCULAR VOLUME 91 fL (80-100); MONOCYTES # (AUTO) 0.9 K/uL (0.1-1.0); MONOCYTES % (AUTO) 12.3 % (2.0-9.0); NEUTROPHILS # (AUTO) 5.5 K/uL (1.8-7.7); NEUTROPHILS % (AUTO) 74.3 % (40.0-70.0); PLATELET COUNT (AUTO) 240 K/uL (150-450); RED CELL DISTRIBUTION WIDTH 14.2 % (11.5-14.5)
[2019-04-01 05:50] LABS: CALCIUM, TOTAL 7.6 mg/dL (8.8-10.5); CREATININE 5.2 mg/dL (0.60-1.30); PHOSPHORUS 5.8 mg/dL (2.5-4.9); POTASSIUM 4.1 mmol/L (3.5-5.1)
[2019-04-01 06:59] LABS: GLUCOSE,POINT OF CARE 104 MG/DL (70-110)
[2019-04-01 06:59] LABS: GLUCOSE,POINT OF CARE 84 MG/DL (70-110)
[2019-04-01] MEDS: CALCIUM ACETATE 667 MG CAPSULE PO SCH ×4 (08:00→17:18)
[2019-04-01 08:16] LABS: ABG A-A DIFF O2 90.5 mmHg (10-20.0); ABG CARBOXYHEMOGLOBIN 0.9 % (0.0-1.5); ABG HCO3 24.9 mmol/L (22.0-26.0); ABG METHEMOGLOBIN 0.3 % (0.0-1.5); ABG OXYGEN CONTENT 18.1 mL/dL (15.0-23.0); ABG OXYGEN SATURATION 97.4 % (95.0-98.0); ABG OXYHEMOGLOBIN 96.2 % (94.0-100.0); ABG PCO2 49 mmHg (35-45); ABG PH 7.355 (7.35-7.450); ABG TOTAL HEMOGLOBIN 13.3 G/dL (12.0-18.0); PO2, ARTERIAL BG 102.6 mmHg (79.0-87.0); SOURCE, BLOOD GAS ARTERIAL; TEMPERATURE, FAHRENHEIT, BG 98.6 FAHREN (96.0-98.6)
[2019-04-01] MEDS: DOCUSATE SODIUM 100 MG CAPSULE PO SCH ×2 (08:18→20:12)
[2019-04-01 08:19] LABS: O2 DEVICE,BLOOD GAS VENTILATOR (ROOM AIR); PEEP,BG 5 cm H2O; SITE, BLOOD GAS RT RADIAL; VT, ABG 550 ml
[2019-04-01] MEDS: AmLODIPine BESYLATE 5 MG TABLET PO SCH (08:27)
[2019-04-01] MEDS: FAMOTIDINE 10 MG/ML 2 ML VIAL IVP SCH (08:28)
[2019-04-01] MEDS: CloNIDine HCL 0.1 MG TABLET PO SCH ×2 (08:28→20:12)
[2019-04-01] MEDS: HEPARIN SODIUM,PORCINE 5,000 UNITS/ML VIAL SQ SCH ×3 (08:28→20:12)
[2019-04-01] MEDS: TERBINAFINE HCL 1% 30 GM CREAM TP SCH ×2 (08:29→20:12)
[2019-04-01] MEDS: MORPHINE SULFATE 2 MG/ML SYRINGE IVP PRN (11:41)
[2019-04-01] MEDS: AMINO ACIDS/PROTEIN HYDROLYS 30 ML TUBE PO SCH (17:18)
[2019-04-01 19:38] LABS: GLUCOSE,POINT OF CARE 93 MG/DL (70-110)
[2019-04-02] VITALS: BP 144/91
[2019-04-02] MEDS: PROPOFOL 1000 MG/ISO-OSM 100 ML IV PRN ×9 (01:35→23:23)
[2019-04-02] MEDS: CeFAZolin 1 GM/DEXTROSE 50 ML IV SCH ×2 (02:39→15:00)
[2019-04-02 04:00] VITALS: BP 126/77
[2019-04-02] MEDS: INSULIN LISPRO 100 UNITS/ML SQ PRN ×3 (05:13→23:15)
[2019-04-02 05:22] LABS: CALCIUM, TOTAL 8.5 mg/dL (8.8-10.5); CREATININE 4.9 mg/dL (0.60-1.30); PHOSPHORUS 4.8 mg/dL (2.5-4.9)
[2019-04-02 07:01] LABS: GLUCOSE,POINT OF CARE 113 MG/DL (70-110)
[2019-04-02 07:01] LABS: GLUCOSE,POINT OF CARE 98 MG/DL (70-110)
[2019-04-02 07:02] LABS: GLUCOSE,POINT OF CARE 120 MG/DL (70-110)
[2019-04-02 07:39] LABS: ABG A-A DIFF O2 111.8 mmHg (10-20.0); ABG BASE EXCESS -2.6 mmol/L (-2.0-3.0); ABG CARBOXYHEMOGLOBIN 0.3 % (0.0-1.5); ABG HCO3 22.3 mmol/L (22.0-26.0); ABG METHEMOGLOBIN 0.3 % (0.0-1.5); ABG OXYGEN CONTENT 17.8 mL/dL (15.0-23.0); ABG OXYGEN SATURATION 95.9 % (95.0-98.0); ABG OXYHEMOGLOBIN 95.3 % (94.0-100.0); ABG PCO2 42 mmHg (35-45); ABG PH 7.354 (7.35-7.450); ABG TOTAL HEMOGLOBIN 13.2 G/dL (12.0-18.0); O2 DEVICE,BLOOD GAS VENTILATOR (ROOM AIR); PO2, ARTERIAL BG 88.8 mmHg (79.0-87.0); SITE, BLOOD GAS RT RADIAL; SOURCE, BLOOD GAS ARTERIAL; TEMPERATURE, FAHRENHEIT, BG 98.6 FAHREN (96.0-98.6); VT, ABG 550 ml
[2019-04-02 07:40] LABS: PEEP,BG 5 cm H2O
[2019-04-02 08:00] VITALS: BP 130/76
[2019-04-02] MEDS: HEPARIN SODIUM,PORCINE 5,000 UNITS/ML VIAL SQ SCH ×3 (08:39→19:41)
[2019-04-02] MEDS: DOCUSATE SODIUM 100 MG CAPSULE PO SCH ×2 (08:39→19:41)
[2019-04-02] MEDS: AMINO ACIDS/PROTEIN HYDROLYS 30 ML TUBE PO SCH ×2 (08:39→17:12)
[2019-04-02] MEDS: CALCIUM ACETATE 667 MG CAPSULE PO SCH ×3 (08:39→17:12)
[2019-04-02] MEDS: CloNIDine HCL 0.1 MG TABLET PO SCH ×2 (08:39→19:41)
[2019-04-02] MEDS: FAMOTIDINE 10 MG/ML 2 ML VIAL IVP SCH (08:39)
[2019-04-02] MEDS: AmLODIPine BESYLATE 5 MG TABLET PO SCH (08:40)
[2019-04-02] MEDS: TERBINAFINE HCL 1% 30 GM CREAM TP SCH ×2 (08:40→19:41)
[2019-04-02] MEDS: METOPROLOL TARTRATE 25 MG TABLET PO SCH ×2 (08:40→19:41)
[2019-04-02 12:00] VITALS: BP 167/105
[2019-04-02 12:02] LABS: GLUCOSE,POINT OF CARE 159 MG/DL (70-110)
[2019-04-02] MEDS: HydrALAZINE HCL 20 MG/ML VIAL IVP PRN (12:11)
[2019-04-02 12:31] LABS: ABG METHEMOGLOBIN 0.3 % (0.0-1.5); ABG OXYHEMOGLOBIN 92.9 % (94.0-100.0); ABG TOTAL HEMOGLOBIN 14.4 G/dL (12.0-18.0); SOURCE, BLOOD GAS ARTERIAL; TEMPERATURE, FAHRENHEIT, BG 98.6 FAHREN (96.0-98.6)
[2019-04-02 12:34] LABS: ABG A-A DIFF O2 111.7 mmHg (10-20.0); ABG BASE EXCESS -0.8 mmol/L (-2.0-3.0); ABG CARBOXYHEMOGLOBIN 0.9 % (0.0-1.5); ABG HCO3 23.1 mmol/L (22.0-26.0); ABG OXYGEN CONTENT 18.8 mL/dL (15.0-23.0); ABG PCO2 53 mmHg (35-45); ABG PH 7.304 (7.35-7.450); O2 DEVICE,BLOOD GAS VENTILATOR (ROOM AIR); PO2, ARTERIAL BG 76.6 mmHg (79.0-87.0); SITE, BLOOD GAS RT RADIAL; VENT MODE, BG SPONTANEOUS (ROOM AIR)
[2019-04-02 12:35] LABS: CPAP, BG 0 cm H2O; PEEP,BG 0 cm H2O; PRESSURE SUPPORT, BG 8 cm H2O; SPONTANEOUS VT, BG 484 ml
[2019-04-02 16:00] VITALS: BP 116/61
[2019-04-02 19:28] LABS: GLUCOSE,POINT OF CARE 103 MG/DL (70-110)
[2019-04-02] MEDS: LEVOFLOXACIN 750 MG/D5% WATER 150 ML IV SCH (19:32)
[2019-04-02 20:00] VITALS: BP 109/63
[2019-04-02] MEDS ORDERED: SODIUM CHLORIDE 0.9% 250 ML IV ONE (22:30)
[2019-04-03] VITALS (7 sets, daily range): BP systolic 109–181; BP diastolic 65–114
[2019-04-03] MEDS: PROPOFOL 1000 MG/ISO-OSM 100 ML IV PRN ×6 (01:09→12:21)
[2019-04-03] MEDS: DAPTOMYCIN 500 MG in SODIUM CHLORIDE 0.9% 50 ML IV SCH (02:11)
[2019-04-03 04:40] LABS: BASOPHILS % (AUTO) 0.6 % (0.0-2.0); EOSINOPHILS % (AUTO) 5.3 % (1.0-6.0); HEMATOCRIT 38.2 % (41-53); HEMOGLOBIN 12.6 g/dL (13.5-17.5); LYMPHOCYTES # (AUTO) 0.7 K/uL (1.0-4.8); LYMPHOCYTES % (AUTO) 7.5 % (22.0-44.0); MEAN CORPUSCULAR HEMOGLOBIN 30.4 pg (26.0-34.0); MEAN CORPUSCULAR VOLUME 92 fL (80-100); MONOCYTES # (AUTO) 1.4 K/uL (0.1-1.0); MONOCYTES % (AUTO) 14.9 % (2.0-9.0); NEUTROPHILS # (AUTO) 6.7 K/uL (1.8-7.7); NEUTROPHILS % (AUTO) 71.7 % (40.0-70.0); PLATELET COUNT (AUTO) 327 K/uL (150-450); RED BLOOD CELL COUNT(AUTO) 4.15 MIL/uL (4.50-5.90); RED CELL DISTRIBUTION WIDTH 14.6 % (11.5-14.5)
[2019-04-03 04:57] LABS: ALBUMIN 1.9 g/dL (3.4-5.0); ALKALINE PHOSPHATASE 63 U/L (46-116); ANION GAP 12 mmol/L (8-16); ASPARTATE AMINOTRANSFERASE 24 U/L (15-37); BILIRUBIN,TOTAL 0.4 mg/dL (0.1-1.0); CALCIUM, TOTAL 8.8 mg/dL (8.8-10.5); CARBON DIOXIDE 26 mmol/L (22-29); CHLORIDE 102 mmol/L (98-107); CREATININE 4.57 mg/dL (0.60-1.30); GLOMERULAR FILTR. RATE CALC 13 mL/min (>60); GLUCOSE,RANDOM 105 mg/dL (70-110); POTASSIUM 4.2 mmol/L (3.5-5.1); SODIUM SERUM 140 mmol/L (136-145); TOTAL PROTEIN, SERUM 7.3 g/dL (6.4-8.2); UREA NITROGEN, BLOOD 56 mg/dL (7-18)
[2019-04-03 05:33] LABS: ALANINE AMINOTRANSFERASE < 12 U/L (12-78)
[2019-04-03 07:17] LABS: GLUCOSE,POINT OF CARE 94 MG/DL (70-110)
[2019-04-03 07:18] LABS: GLUCOSE,POINT OF CARE 97 MG/DL (70-110)
[2019-04-03] MEDS: CALCIUM ACETATE 667 MG CAPSULE PO SCH ×3 (08:00→17:30)
[2019-04-03] MEDS: CloNIDine HCL 0.1 MG TABLET PO SCH ×2 (08:58→21:00)
[2019-04-03] MEDS: HEPARIN SODIUM,PORCINE 5,000 UNITS/ML VIAL SQ SCH ×3 (08:58→21:04)
[2019-04-03] MEDS: FAMOTIDINE 10 MG/ML 2 ML VIAL IVP SCH (08:58)
[2019-04-03] MEDS: AmLODIPine BESYLATE 5 MG TABLET PO SCH (08:59)
[2019-04-03] MEDS: METOPROLOL TARTRATE 25 MG TABLET PO SCH ×2 (08:59→21:00)
[2019-04-03] MEDS: DOCUSATE SODIUM 100 MG CAPSULE PO SCH ×2 (08:59→21:00)
[2019-04-03] MEDS: TERBINAFINE HCL 1% 30 GM CREAM TP SCH ×2 (08:59→21:04)
[2019-04-03] MEDS: AMINO ACIDS/PROTEIN HYDROLYS 30 ML TUBE PO SCH (14:26)
[2019-04-03] MEDS: HydrALAZINE HCL 20 MG/ML VIAL IVP PRN ×2 (14:33→21:03)
[2019-04-03 15:36] LABS: SOURCE, BLOOD GAS ARTERIAL; TEMPERATURE, FAHRENHEIT, BG 98.6 FAHREN (96.0-98.6)
[2019-04-03 15:44] LABS: ABG A-A DIFF O2 88.6 mmHg (10-20.0); ABG BASE EXCESS -0.2 mmol/L (-2.0-3.0); ABG CARBOXYHEMOGLOBIN 0.8 % (0.0-1.5); ABG HCO3 24.2 mmol/L (22.0-26.0); ABG METHEMOGLOBIN 0.2 % (0.0-1.5); ABG OXYGEN CONTENT 18.9 mL/dL (15.0-23.0); ABG OXYGEN SATURATION 97.9 % (95.0-98.0); ABG OXYHEMOGLOBIN 96.9 % (94.0-100.0); ABG PCO2 43 mmHg (35-45); ABG PH 7.378 (7.35-7.450); ABG TOTAL HEMOGLOBIN 13.8 G/dL (12.0-18.0); PO2, ARTERIAL BG 110.5 mmHg (79.0-87.0)
[2019-04-03 15:45] LABS: O2 DEVICE,BLOOD GAS VENTILATOR (ROOM AIR); SITE, BLOOD GAS LFT RADIAL
[2019-04-03 15:46] LABS: PEEP,BG 5 cm H2O; PRESSURE SUPPORT, BG 10 cm H2O; VENT MODE, BG CPAP (ROOM AIR)
[2019-04-03 18:25] LABS: GLUCOSE,POINT OF CARE 122 MG/DL (70-110)
[2019-04-03 18:48] LABS: GLUCOSE,POINT OF CARE 130 MG/DL (70-110)
[2019-04-03] MEDS: MORPHINE SULFATE 2 MG/ML SYRINGE IVP PRN (21:37)
[2019-04-03] MEDS ORDERED: LORazepam 2 MG/ML VIAL IM PRN (23:30)
[2019-04-03] MEDS ORDERED: LABETALOL HCL 5 MG/ML 20 ML VIAL IVP ONE (23:30)
[2019-04-03] MEDS: LORazepam 2 MG/ML VIAL IVP PRN (23:31)
[2019-04-04] VITALS (7 sets, daily range): BP systolic 141–187; BP diastolic 13–116
[2019-04-04] MEDS: HydrALAZINE HCL 20 MG/ML VIAL IVP PRN ×3 (03:12→16:24)
[2019-04-04] MEDS: MORPHINE SULFATE 2 MG/ML SYRINGE IVP PRN (04:00)
[2019-04-04 04:47] LABS: BASOPHILS % (AUTO) 0.6 % (0.0-2.0); EOSINOPHILS % (AUTO) 2.4 % (1.0-6.0); HEMATOCRIT 41.9 % (41-53); HEMOGLOBIN 13.7 g/dL (13.5-17.5); LYMPHOCYTES # (AUTO) 0.5 K/uL (1.0-4.8); LYMPHOCYTES % (AUTO) 3.9 % (22.0-44.0); MEAN CORPUSCULAR HEMOGLOBIN 30.1 pg (26.0-34.0); MEAN CORPUSCULAR HGB CONC 32.7 G/dL (31.0-37.0); MEAN CORPUSCULAR VOLUME 92 fL (80-100); MONOCYTES # (AUTO) 1.6 K/uL (0.1-1.0); MONOCYTES % (AUTO) 12.7 % (2.0-9.0); NEUTROPHILS # (AUTO) 9.9 K/uL (1.8-7.7); NEUTROPHILS % (AUTO) 80.4 % (40.0-70.0); PLATELET COUNT (AUTO) 369 K/uL (150-450); RED BLOOD CELL COUNT(AUTO) 4.55 MIL/uL (4.50-5.90); RED CELL DISTRIBUTION WIDTH 14.5 % (11.5-14.5)
[2019-04-04 04:55] LABS: CALCIUM, TOTAL 9.4 mg/dL (8.8-10.5); CREATININE 5.52 mg/dL (0.60-1.30); MAGNESIUM 2.2 mg/dL (1.80-2.40); POTASSIUM 4.6 mmol/L (3.5-5.1)
[2019-04-04] MEDS: DiphenhydrAMINE HCL 50 MG/ML VIAL IVP PRN ×3 (05:12→20:52)
[2019-04-04] MEDS: NiCARDipine HCL 25 MG in DEXTROSE 5%-WATER 240 ML IV PRN ×7 (05:33→23:52)
[2019-04-04 07:11] LABS: GLUCOSE,POINT OF CARE 141 MG/DL (70-110)
[2019-04-04 07:11] LABS: GLUCOSE,POINT OF CARE 140 MG/DL (70-110)
[2019-04-04] MEDS: CALCIUM ACETATE 667 MG CAPSULE PO SCH ×3 (08:00→16:26)
[2019-04-04] MEDS: FAMOTIDINE 10 MG/ML 2 ML VIAL IVP SCH (08:42)
[2019-04-04] MEDS: HEPARIN SODIUM,PORCINE 5,000 UNITS/ML VIAL SQ SCH ×3 (08:42→20:52)
[2019-04-04] MEDS: DOCUSATE SODIUM 100 MG CAPSULE PO SCH ×2 (08:42→19:45)
[2019-04-04] MEDS: CloNIDine HCL 0.1 MG TABLET PO SCH ×2 (08:42→19:45)
[2019-04-04] MEDS: METOPROLOL TARTRATE 25 MG TABLET PO SCH ×2 (08:43→19:46)
[2019-04-04] MEDS: TERBINAFINE HCL 1% 30 GM CREAM TP SCH ×2 (08:43→20:57)
[2019-04-04] MEDS: AmLODIPine BESYLATE 5 MG TABLET PO SCH (08:43)
[2019-04-04] MEDS: LORazepam 2 MG/ML VIAL IVP PRN ×2 (09:41→17:50)
[2019-04-04 10:39] LABS: ABG A-A DIFF O2 183.7 mmHg (10-20.0); ABG BASE EXCESS -3.4 mmol/L (-2.0-3.0); ABG CARBOXYHEMOGLOBIN 0.9 % (0.0-1.5); ABG HCO3 21.7 mmol/L (22.0-26.0); ABG METHEMOGLOBIN 0.3 % (0.0-1.5); ABG OXYGEN CONTENT 19.9 mL/dL (15.0-23.0); ABG OXYGEN SATURATION 96.6 % (95.0-98.0); ABG OXYHEMOGLOBIN 95.4 % (94.0-100.0); ABG PCO2 42 mmHg (35-45); ABG PH 7.343 (7.35-7.450); ABG TOTAL HEMOGLOBIN 14.8 G/dL (12.0-18.0); PO2, ARTERIAL BG 89.6 mmHg (79.0-87.0); SITE, BLOOD GAS LFT RADIAL; SOURCE, BLOOD GAS ARTERIAL; TEMPERATURE, FAHRENHEIT, BG 98.3 FAHREN (96.0-98.6)
[2019-04-04 10:40] LABS: O2 DEVICE,BLOOD GAS BIPAP (ROOM AIR); SPONTANEOUS VT, BG 650 ml
[2019-04-04 11:51] LABS: APPEARANCE,URINE CLOUDY (CLEAR); BILIRUBIN,URINE NEGATIVE (NEGATIVE); GLUCOSE, URINE (UA) NEGATIVE (NEGATIVE); KETONES,URINE NEGATIVE (NEGATIVE); LEUKOCYTE ESTERASE ,URINE SMALL (NEGATIVE); NITRATE,URINE NEGATIVE (NEGATIVE); OCCULT BLOOD,URINE MODERATE (NEGATIVE); PH,URINE 5.5 (5.0-8.0); PROTEIN,URINE POS 1+ (NEGATIVE); UROBILINOGEN,URINE 0.2 mg/dL (<=1.0)
[2019-04-04 12:04] LABS: CREATININE,URINE RANDOM 46.1 mg/dL (30.0-125.0); SODIUM,URINE RANDOM 46 mmol/l (20-110); UREA NITROGEN,URINE RANDOM 322 mg/dL (350-1000)
[2019-04-04 12:35] LABS: BACTERIA,URINE Few /HPF (None Seen); SQUAMOUS EPITHELIAL CELL,UR Few /LPF (None Seen)
[2019-04-04] MEDS: AMINO ACIDS/PROTEIN HYDROLYS 30 ML TUBE PO SCH (14:00)
[2019-04-04] MEDS: HALOPERIDOL LACTATE 5 MG/ML VIAL IVP PRN ×2 (14:00→20:53)
[2019-04-04 14:51] LABS: GLUCOSE,POINT OF CARE 175 MG/DL (70-110)
[2019-04-04] MEDS: LABETALOL HCL 5 MG/ML 20 ML VIAL IVP PRN ×2 (17:51→20:53)
[2019-04-04] MEDS ORDERED: SODIUM CHLORIDE 0.9% 250 ML IV ONE (18:33)
[2019-04-04] MEDS: QUEtiapine FUMARATE 25 MG TABLET PO SCH (19:47)
[2019-04-04] MEDS: LEVOFLOXACIN 750 MG/D5% WATER 150 ML IV SCH (20:51)
[2019-04-05] VITALS: BP 136/99
[2019-04-05 00:02] LABS: GLUCOSE,POINT OF CARE 154 MG/DL (70-110)
[2019-04-05 00:02] LABS: GLUCOSE,POINT OF CARE 118 MG/DL (70-110)
[2019-04-05] MEDS: DAPTOMYCIN 500 MG in SODIUM CHLORIDE 0.9% 50 ML IV SCH (02:16)
[2019-04-05 04:00] VITALS: BP 151/97
[2019-04-05 05:26] LABS: BASOPHILS % (AUTO) 0.8 % (0.0-2.0); EOSINOPHILS % (AUTO) 2.2 % (1.0-6.0); HEMATOCRIT 40.7 % (41-53); HEMOGLOBIN 13.1 g/dL (13.5-17.5); LYMPHOCYTES # (AUTO) 0.4 K/uL (1.0-4.8); LYMPHOCYTES % (AUTO) 3.8 % (22.0-44.0); MEAN CORPUSCULAR HEMOGLOBIN 29.8 pg (26.0-34.0); MEAN CORPUSCULAR HGB CONC 32.3 G/dL (31.0-37.0); MEAN CORPUSCULAR VOLUME 92 fL (80-100); MONOCYTES # (AUTO) 1.7 K/uL (0.1-1.0); MONOCYTES % (AUTO) 14.3 % (2.0-9.0); NEUTROPHILS # (AUTO) 9.3 K/uL (1.8-7.7); NEUTROPHILS % (AUTO) 78.9 % (40.0-70.0); PLATELET COUNT (AUTO) 328 K/uL (150-450); RED BLOOD CELL COUNT(AUTO) 4.41 MIL/uL (4.50-5.90); RED CELL DISTRIBUTION WIDTH 14.8 % (11.5-14.5)
[2019-04-05 05:40] LABS: ALBUMIN 2.3 g/dL (3.4-5.0); BILIRUBIN,TOTAL 0.6 mg/dL (0.1-1.0); CALCIUM, TOTAL 9.3 mg/dL (8.8-10.5); CREATININE 5.65 mg/dL (0.60-1.30); TOTAL PROTEIN, SERUM 8.6 g/dL (6.4-8.2)
[2019-04-05] MEDS: NiCARDipine HCL 25 MG in DEXTROSE 5%-WATER 240 ML IV PRN ×2 (05:50→15:41)
[2019-04-05] MEDS: LABETALOL HCL 5 MG/ML 20 ML VIAL IVP PRN ×3 (05:51→23:09)
[2019-04-05 08:00] VITALS: BP 156/94
[2019-04-05] MEDS: CALCIUM ACETATE 667 MG CAPSULE PO SCH ×3 (08:00→16:54)
[2019-04-05 08:13] LABS: MAGNESIUM 2.2 mg/dL (1.80-2.40); PHOSPHORUS 6.1 mg/dL (2.5-4.9)
[2019-04-05] MEDS: CloNIDine HCL 0.1 MG TABLET PO SCH ×2 (08:38→20:01)
[2019-04-05] MEDS: METOPROLOL TARTRATE 25 MG TABLET PO SCH ×2 (08:38→20:01)
[2019-04-05] MEDS: AmLODIPine BESYLATE 5 MG TABLET PO SCH (08:38)
[2019-04-05] MEDS: DOCUSATE SODIUM 100 MG CAPSULE PO SCH ×2 (08:38→19:58)
[2019-04-05] MEDS: HALOPERIDOL LACTATE 5 MG/ML VIAL IVP PRN (08:48)
[2019-04-05] MEDS: DiphenhydrAMINE HCL 50 MG/ML VIAL IVP PRN (08:48)
[2019-04-05] MEDS: HEPARIN SODIUM,PORCINE 5,000 UNITS/ML VIAL SQ SCH ×3 (08:48→20:01)
[2019-04-05] MEDS: FAMOTIDINE 10 MG/ML 2 ML VIAL IVP SCH (08:48)
[2019-04-05] MEDS: TERBINAFINE HCL 1% 30 GM CREAM TP SCH ×2 (08:49→20:02)
[2019-04-05 11:01] LABS: ABG A-A DIFF O2 118.1 mmHg (10-20.0); ABG BASE EXCESS -2.9 mmol/L (-2.0-3.0); ABG CARBOXYHEMOGLOBIN 0.9 % (0.0-1.5); ABG METHEMOGLOBIN 0.3 % (0.0-1.5); ABG OXYGEN CONTENT 19.2 mL/dL (15.0-23.0); ABG OXYGEN SATURATION 97.9 % (95.0-98.0); ABG OXYHEMOGLOBIN 96.7 % (94.0-100.0); ABG PCO2 44 mmHg (35-45); ABG PH 7.337 (7.35-7.450); PO2, ARTERIAL BG 116.8 mmHg (79.0-87.0); SOURCE, BLOOD GAS ARTERIAL; TEMPERATURE, FAHRENHEIT, BG 98.6 FAHREN (96.0-98.6)
[2019-04-05 11:03] LABS: O2 DEVICE,BLOOD GAS BIPAP (ROOM AIR); SITE, BLOOD GAS LFT RADIAL
[2019-04-05 12:00] VITALS: BP 141/69
[2019-04-05] MEDS: INSULIN LISPRO 100 UNITS/ML SQ PRN ×2 (13:57→23:16)
[2019-04-05] MEDS: AMINO ACIDS/PROTEIN HYDROLYS 30 ML TUBE PO SCH (14:00)
[2019-04-05 16:00] VITALS: BP 166/109
[2019-04-05 19:38] LABS: GLUCOSE,POINT OF CARE 140 MG/DL (70-110)
[2019-04-05 20:00] VITALS: BP 145/90
[2019-04-05] MEDS: HALOPERIDOL 5 MG TABLET PO SCH (20:01)
[2019-04-05] MEDS: QUEtiapine FUMARATE 25 MG TABLET PO SCH (20:01)
[2019-04-06] VITALS: BP 168/112
[2019-04-06] MEDS: HydrALAZINE HCL 20 MG/ML VIAL IVP PRN ×3 (00:20→15:08)
[2019-04-06] MEDS: LABETALOL HCL 5 MG/ML 20 ML VIAL IVP PRN ×4 (01:39→19:06)
[2019-04-06 04:00] VITALS: BP 169/105
[2019-04-06] MEDS: INSULIN LISPRO 100 UNITS/ML SQ PRN ×3 (04:42→18:12)
[2019-04-06 05:02] LABS: CALCIUM, TOTAL 9.7 mg/dL (8.8-10.5); CREATININE 5.24 mg/dL (0.60-1.30); MAGNESIUM 2.3 mg/dL (1.80-2.40); PHOSPHORUS 5.9 mg/dL (2.5-4.9); POTASSIUM 5.5 mmol/L (3.5-5.1)
[2019-04-06 08:00] VITALS: BP 147/99
[2019-04-06] MEDS: CALCIUM ACETATE 667 MG CAPSULE PO SCH ×3 (08:05→17:50)
[2019-04-06] MEDS: AmLODIPine BESYLATE 5 MG TABLET PO SCH (08:05)
[2019-04-06] MEDS: DOCUSATE SODIUM 100 MG CAPSULE PO SCH ×2 (08:05→20:35)
[2019-04-06] MEDS: HALOPERIDOL 5 MG TABLET PO SCH ×2 (08:05→20:35)
[2019-04-06] MEDS: FAMOTIDINE 10 MG/ML 2 ML VIAL IVP SCH (08:05)
[2019-04-06] MEDS: METOPROLOL TARTRATE 25 MG TABLET PO SCH ×2 (08:05→20:35)
[2019-04-06] MEDS: HEPARIN SODIUM,PORCINE 5,000 UNITS/ML VIAL SQ SCH ×3 (08:05→20:35)
[2019-04-06] MEDS: CloNIDine HCL 0.1 MG TABLET PO SCH ×2 (08:05→20:35)
[2019-04-06] MEDS: TERBINAFINE HCL 1% 30 GM CREAM TP SCH ×2 (08:06→20:39)
[2019-04-06] MEDS ORDERED: SODIUM ZIRCONIUM CYCLOSILICATE 5 GM POWDER PACKET PO ONE (08:15)
[2019-04-06 11:03] LABS: ABG A-A DIFF O2 149.6 mmHg (10-20.0); ABG BASE EXCESS 0.4 mmol/L (-2.0-3.0); ABG HCO3 23.1 mmol/L (22.0-26.0); ABG METHEMOGLOBIN 0.3 % (0.0-1.5); ABG OXYGEN CONTENT 18.3 mL/dL (15.0-23.0); ABG OXYGEN SATURATION 88.4 % (95.0-98.0); ABG OXYHEMOGLOBIN 87.3 % (94.0-100.0); ABG PCO2 66 mmHg (35-45); ABG PH 7.239 (7.35-7.450); ABG TOTAL HEMOGLOBIN 14.9 G/dL (12.0-18.0); PO2, ARTERIAL BG 59.6 mmHg (79.0-87.0); SOURCE, BLOOD GAS ARTERIAL; TEMPERATURE, FAHRENHEIT, BG 98.1 FAHREN (96.0-98.6)
[2019-04-06 11:04] LABS: O2 DEVICE,BLOOD GAS BIPAP (ROOM AIR); SITE, BLOOD GAS LFT RADIAL
[2019-04-06 11:39] LABS: GLUCOSE,POINT OF CARE 139 MG/DL (70-110)
[2019-04-06 12:00] VITALS: BP 163/107
[2019-04-06] MEDS: AMINO ACIDS/PROTEIN HYDROLYS 30 ML TUBE PO SCH (14:00)
[2019-04-06 14:10] LABS: ABG A-A DIFF O2 170.8 mmHg (10-20.0); ABG BASE EXCESS -2.4 mmol/L (-2.0-3.0); ABG CARBOXYHEMOGLOBIN 1.1 % (0.0-1.5); ABG HCO3 21.9 mmol/L (22.0-26.0); ABG METHEMOGLOBIN 0.3 % (0.0-1.5); ABG OXYGEN CONTENT 19.1 mL/dL (15.0-23.0); ABG OXYGEN SATURATION 96.1 % (95.0-98.0); ABG OXYHEMOGLOBIN 94.8 % (94.0-100.0); ABG PCO2 53 mmHg (35-45); ABG PH 7.279 (7.35-7.450); ABG TOTAL HEMOGLOBIN 14.3 G/dL (12.0-18.0); PO2, ARTERIAL BG 89.7 mmHg (79.0-87.0); SOURCE, BLOOD GAS ARTERIAL; TEMPERATURE, FAHRENHEIT, BG 98.4 FAHREN (96.0-98.6)
[2019-04-06 14:11] LABS: O2 DEVICE,BLOOD GAS BIPAP (ROOM AIR); SITE, BLOOD GAS LFT RADIAL
[2019-04-06 16:00] VITALS: BP 146/99
[2019-04-06 18:21] LABS: GLUCOSE,POINT OF CARE 156 MG/DL (70-110)
[2019-04-06 18:21] LABS: GLUCOSE,POINT OF CARE 112 MG/DL (70-110)
[2019-04-06 18:21] LABS: GLUCOSE,POINT OF CARE 150 MG/DL (70-110)
[2019-04-06 18:21] LABS: GLUCOSE,POINT OF CARE 141 MG/DL (70-110)
[2019-04-06 20:00] VITALS: BP 135/89
[2019-04-07] VITALS: BP 152/99
[2019-04-07] MEDS: INSULIN LISPRO 100 UNITS/ML SQ PRN ×3 (00:40→12:08)
[2019-04-07 04:00] VITALS: BP 154/102
[2019-04-07] MEDS ORDERED: SODIUM CHLORIDE 0.9% 250 ML IV ONE (04:14)
[2019-04-07 05:41] LABS: BASOPHILS % (AUTO) 0.4 % (0.0-2.0); EOSINOPHILS % (AUTO) 0.6 % (1.0-6.0); HEMATOCRIT 43.2 % (41-53); HEMOGLOBIN 13.8 g/dL (13.5-17.5); LYMPHOCYTES # (AUTO) 0.6 K/uL (1.0-4.8); LYMPHOCYTES % (AUTO) 4.6 % (22.0-44.0); MEAN CORPUSCULAR HEMOGLOBIN 30.2 pg (26.0-34.0); MEAN CORPUSCULAR HGB CONC 31.9 G/dL (31.0-37.0); MEAN CORPUSCULAR VOLUME 95 fL (80-100); MONOCYTES # (AUTO) 1.4 K/uL (0.1-1.0); MONOCYTES % (AUTO) 11.5 % (2.0-9.0); NEUTROPHILS # (AUTO) 9.9 K/uL (1.8-7.7); NEUTROPHILS % (AUTO) 82.9 % (40.0-70.0); PLATELET COUNT (AUTO) 298 K/uL (150-450); RED BLOOD CELL COUNT(AUTO) 4.57 MIL/uL (4.50-5.90); RED CELL DISTRIBUTION WIDTH 14.8 % (11.5-14.5)
[2019-04-07 05:53] LABS: ALBUMIN 2.4 g/dL (3.4-5.0); BILIRUBIN,TOTAL 0.5 mg/dL (0.1-1.0); CALCIUM, TOTAL 9.8 mg/dL (8.8-10.5); CREATININE 5.88 mg/dL (0.60-1.30); MAGNESIUM 2.5 mg/dL (1.80-2.40); PHOSPHORUS 7.4 mg/dL (2.5-4.9); POTASSIUM 5.7 mmol/L (3.5-5.1); TOTAL PROTEIN, SERUM 8.9 g/dL (6.4-8.2)
[2019-04-07 07:01] LABS: GLUCOSE,POINT OF CARE 147 MG/DL (70-110)
[2019-04-07 07:01] LABS: GLUCOSE,POINT OF CARE 153 MG/DL (70-110)
[2019-04-07 07:41] LABS: ABG A-A DIFF O2 172.3 mmHg (10-20.0); ABG BASE EXCESS -1.4 mmol/L (-2.0-3.0); ABG CARBOXYHEMOGLOBIN 0.6 % (0.0-1.5); ABG HCO3 22.5 mmol/L (22.0-26.0); ABG METHEMOGLOBIN 0.3 % (0.0-1.5); ABG OXYGEN CONTENT 19.3 mL/dL (15.0-23.0); ABG OXYGEN SATURATION 95.5 % (95.0-98.0); ABG OXYHEMOGLOBIN 94.6 % (94.0-100.0); ABG PCO2 56 mmHg (35-45); ABG PH 7.277 (7.35-7.450); ABG TOTAL HEMOGLOBIN 14.5 G/dL (12.0-18.0); PO2, ARTERIAL BG 85.2 mmHg (79.0-87.0); SITE, BLOOD GAS RT RADIAL; SOURCE, BLOOD GAS ARTERIAL; TEMPERATURE, FAHRENHEIT, BG 98.6 FAHREN (96.0-98.6)
[2019-04-07 07:42] LABS: CPAP, BG 0 cm H2O; O2 DEVICE,BLOOD GAS BIPAP (ROOM AIR); PRESSURE SUPPORT, BG 16 cm H2O; SPONTANEOUS VT, BG 730 ml
[2019-04-07 08:00] VITALS: BP 161/103
[2019-04-07] MEDS: CALCIUM ACETATE 667 MG CAPSULE PO SCH ×3 (08:22→17:30)
[2019-04-07] MEDS: AMINO ACIDS/PROTEIN HYDROLYS 30 ML TUBE PO SCH (08:22)
[2019-04-07] MEDS: HEPARIN SODIUM,PORCINE 5,000 UNITS/ML VIAL SQ SCH ×3 (08:24→22:20)
[2019-04-07] MEDS: TERBINAFINE HCL 1% 30 GM CREAM TP SCH ×2 (08:24→22:20)
[2019-04-07] MEDS: METOPROLOL TARTRATE 25 MG TABLET PO SCH ×2 (08:24→22:20)
[2019-04-07] MEDS: DOCUSATE SODIUM 100 MG CAPSULE PO SCH ×2 (08:24→22:20)
[2019-04-07] MEDS: FAMOTIDINE 10 MG/ML 2 ML VIAL IVP SCH (08:24)
[2019-04-07] MEDS: CloNIDine HCL 0.1 MG TABLET PO SCH ×2 (08:24→22:45)
[2019-04-07] MEDS: AmLODIPine BESYLATE 5 MG TABLET PO SCH (08:24)
[2019-04-07] MEDS: LABETALOL HCL 5 MG/ML 20 ML VIAL IVP PRN (08:25)
[2019-04-07] MEDS ORDERED: SODIUM POLYSTYRENE SULFONATE 15 GM/60 ML SUSPENSION BOTTLE PO ONE (09:00)
[2019-04-07] MEDS: HALOPERIDOL 5 MG TABLET PO SCH ×2 (09:00→21:00)
[2019-04-07 12:00] VITALS: BP 145/90
[2019-04-07] MEDS ORDERED: HEPARIN SODIUM,PORCINE 1,000 UNITS/ML VIAL IVP ONE (12:00)
[2019-04-07 12:02] LABS: INR 1.2 (0.9-1.1)
[2019-04-07] MEDS: DiphenhydrAMINE HCL 50 MG/ML VIAL IVP PRN (12:59)
[2019-04-07] MEDS ORDERED: HEPARIN SODIUM 1000 UNITS/NS 500 ML ONE (14:12)
[2019-04-07] MEDS ORDERED: HEPARIN SODIUM,PORCINE 1,000 UNITS/ML 10 ML VIAL ONE (14:12)
[2019-04-07] MEDS ORDERED: LIDOCAINE/PF 1% 30 ML VIAL ONE (14:12)
[2019-04-07] MEDS: LORazepam 2 MG/ML VIAL IVP PRN (15:46)
[2019-04-07 16:00] VITALS: BP 144/106
[2019-04-07] MEDS ORDERED: SODIUM CHLORIDE 0.9% 1,000 ML ONE ×2 (17:20)
[2019-04-07 18:20] LABS: CREATININE 5.76 mg/dL (0.60-1.30); POTASSIUM 5.1 mmol/L (3.5-5.1)
[2019-04-07 20:00] VITALS: BP 123/82
[2019-04-07 20:14] LABS: GLUCOSE,POINT OF CARE 161 MG/DL (70-110)
[2019-04-08] VITALS (8 sets, daily range): BP systolic 105–150; BP diastolic 56–106
[2019-04-08] MEDS: INSULIN LISPRO 100 UNITS/ML SQ PRN ×4 (00:30→19:04)
[2019-04-08 00:31] LABS: GLUCOSE,POINT OF CARE 155 MG/DL (70-110)
[2019-04-08] MEDS: LABETALOL HCL 5 MG/ML 20 ML VIAL IVP PRN ×2 (02:30→05:20)
[2019-04-08 05:34] LABS: BASOPHILS % (AUTO) 0.6 % (0.0-2.0); EOSINOPHILS % (AUTO) 2.8 % (1.0-6.0); HEMATOCRIT 45.2 % (41-53); HEMOGLOBIN 14.3 g/dL (13.5-17.5); LYMPHOCYTES # (AUTO) 0.5 K/uL (1.0-4.8); LYMPHOCYTES % (AUTO) 4.4 % (22.0-44.0); MEAN CORPUSCULAR HEMOGLOBIN 29.7 pg (26.0-34.0); MEAN CORPUSCULAR HGB CONC 31.7 G/dL (31.0-37.0); MEAN CORPUSCULAR VOLUME 94 fL (80-100); MONOCYTES # (AUTO) 1.4 K/uL (0.1-1.0); MONOCYTES % (AUTO) 11.2 % (2.0-9.0); PLATELET COUNT (AUTO) 253 K/uL (150-450); RED BLOOD CELL COUNT(AUTO) 4.83 MIL/uL (4.50-5.90); RED CELL DISTRIBUTION WIDTH 15.2 % (11.5-14.5)
[2019-04-08 05:43] LABS: GLUCOSE,POINT OF CARE 167 MG/DL (70-110)
[2019-04-08 05:44] LABS: CALCIUM, TOTAL 9.6 mg/dL (8.8-10.5); CREATININE 5.73 mg/dL (0.60-1.30); MAGNESIUM 2.4 mg/dL (1.80-2.40); PHOSPHORUS 6.1 mg/dL (2.5-4.9); POTASSIUM 4.9 mmol/L (3.5-5.1)
[2019-04-08] MEDS: DOCUSATE SODIUM 100 MG CAPSULE PO SCH ×2 (09:00→21:00)
[2019-04-08] MEDS: TERBINAFINE HCL 1% 30 GM CREAM TP SCH ×2 (09:00→20:58)
[2019-04-08] MEDS: CloNIDine HCL 0.1 MG TABLET PO SCH ×2 (09:00→23:07)
[2019-04-08] MEDS: METOPROLOL TARTRATE 25 MG TABLET PO SCH ×2 (09:00→20:55)
[2019-04-08] MEDS: HEPARIN SODIUM,PORCINE 5,000 UNITS/ML VIAL SQ SCH ×3 (09:04→20:55)
[2019-04-08] MEDS: CALCIUM ACETATE 667 MG CAPSULE PO SCH ×3 (09:04→17:30)
[2019-04-08] MEDS: HALOPERIDOL 5 MG TABLET PO SCH ×2 (09:05→22:11)
[2019-04-08] MEDS: FAMOTIDINE 10 MG/ML 2 ML VIAL IVP SCH (09:05)
[2019-04-08] MEDS ORDERED: HEPARIN SODIUM,PORCINE 1,000 UNITS/ML VIAL IVP ONE (12:00)
[2019-04-08] MEDS ORDERED: DiphenhydrAMINE HCL 50 MG/ML VIAL IVP ONE (12:00)
[2019-04-08 12:35] LABS: GLUCOSE,POINT OF CARE 114 MG/DL (70-110)
[2019-04-08 12:47] LABS: GLUCOSE,POINT OF CARE 143 MG/DL (70-110)
[2019-04-08] MEDS: AMINO ACIDS/PROTEIN HYDROLYS 30 ML TUBE PO SCH (15:01)
[2019-04-08] MEDS: AmLODIPine BESYLATE 5 MG TABLET PO SCH (15:01)
[2019-04-08] MEDS ORDERED: KETAMINE HCL 50 MG/ML 10 ML VIAL IVP ONE (16:15)
[2019-04-08] MEDS ORDERED: ETOMIDATE 2 MG/ML 10 ML VIAL IVP ONE ×2 (16:22→17:41)
[2019-04-08] MEDS ORDERED: VECURONIUM BROMIDE 10 MG/VIAL IVP ONE ×2 (16:22→17:42)
[2019-04-08] MEDS ORDERED: RAPID SEQUENCE KIT [RSI] 1 EACH KIT ONE (17:28)
[2019-04-08] MEDS ORDERED: PROPOFOL 1000 MG/ISO-OSM 100 ML IV ONE (17:35)
[2019-04-08] MEDS ORDERED: PIPERACILLIN SODIUM/TAZOBACTAM 0.75 GM in DEXTROSE 5%-WATER 50 ML IV PRN (18:15)
[2019-04-08] MEDS: PROPOFOL 1000 MG/ISO-OSM 100 ML IV PRN (18:20)
[2019-04-08 18:50] LABS: GLUCOSE,POINT OF CARE 134 MG/DL (70-110)
[2019-04-08 19:39] LABS: ABG A-A DIFF O2 334.2 mmHg (10-20.0); ABG BASE EXCESS 0.4 mmol/L (-2.0-3.0); ABG CARBOXYHEMOGLOBIN 0.8 % (0.0-1.5); ABG HCO3 23.8 mmol/L (22.0-26.0); ABG OXYGEN CONTENT 19.4 mL/dL (15.0-23.0); ABG OXYHEMOGLOBIN 96.2 % (94.0-100.0); ABG PCO2 58 mmHg (35-45); ABG PH 7.287 (7.35-7.450); ABG TOTAL HEMOGLOBIN 14.3 G/dL (12.0-18.0); O2 DEVICE,BLOOD GAS VENTILATOR (ROOM AIR); SITE, BLOOD GAS RT RADIAL; SOURCE, BLOOD GAS ARTERIAL; TEMPERATURE, FAHRENHEIT, BG 98.5 FAHREN (96.0-98.6); VT, ABG 500 ml
[2019-04-08 19:40] LABS: PEEP,BG 5 cm H2O
[2019-04-08] MEDS: PIPERACILLIN SODIUM/TAZOBACTAM 2.25 GM in DEXTROSE 5%-WATER 50 ML IV SCH (19:53)
[2019-04-08] MEDS: IPRATROPIUM BROMIDE 0.5 MG/2.5 ML NEB SOLUTION NEB SCH (21:05)
[2019-04-08] MEDS: ACETYLCYSTEINE 10% 100 MG/ML 4 ML NEB SOLUTION NEB SCH (21:05)
[2019-04-08] MEDS: ALBUTEROL SULFATE 2.5 MG/0.5 ML NEB SOLUTION NEB SCH (21:05)
[2019-04-09] VITALS (7 sets, daily range): BP systolic 110–143; BP diastolic 65–92
[2019-04-09] MEDS: PIPERACILLIN SODIUM/TAZOBACTAM 2.25 GM in DEXTROSE 5%-WATER 50 ML IV SCH ×3 (04:05→19:42)
[2019-04-09] MEDS: PROPOFOL 1000 MG/ISO-OSM 100 ML IV PRN ×4 (04:06→23:47)
[2019-04-09] MEDS ORDERED: SODIUM CHLORIDE 0.9% 250 ML IV ONE ×2 (05:15→23:37)
[2019-04-09 05:31] LABS: BASOPHILS % (AUTO) 0.8 % (0.0-2.0); EOSINOPHILS % (AUTO) 7.5 % (1.0-6.0); HEMOGLOBIN 12.7 g/dL (13.5-17.5); LYMPHOCYTES # (AUTO) 0.6 K/uL (1.0-4.8); MEAN CORPUSCULAR HEMOGLOBIN 30.3 pg (26.0-34.0); MEAN CORPUSCULAR HGB CONC 32.7 G/dL (31.0-37.0); MEAN CORPUSCULAR VOLUME 93 fL (80-100); MONOCYTES # (AUTO) 1.3 K/uL (0.1-1.0); MONOCYTES % (AUTO) 12.2 % (2.0-9.0); NEUTROPHILS # (AUTO) 7.9 K/uL (1.8-7.7); NEUTROPHILS % (AUTO) 73.5 % (40.0-70.0); PLATELET COUNT (AUTO) 209 K/uL (150-450); RED CELL DISTRIBUTION WIDTH 15.1 % (11.5-14.5)
[2019-04-09 05:50] LABS: ALBUMIN 2.3 g/dL (3.4-5.0); BILIRUBIN,TOTAL 0.5 mg/dL (0.1-1.0); CALCIUM, TOTAL 8.8 mg/dL (8.8-10.5); CREATININE 5.53 mg/dL (0.60-1.30); MAGNESIUM 1.9 mg/dL (1.80-2.40); PHOSPHORUS 5.9 mg/dL (2.5-4.9); POTASSIUM 4.1 mmol/L (3.5-5.1); TOTAL PROTEIN, SERUM 8.2 g/dL (6.4-8.2)
[2019-04-09 07:00] LABS: GLUCOSE,POINT OF CARE 126 MG/DL (70-110)
[2019-04-09 07:00] LABS: GLUCOSE,POINT OF CARE 120 MG/DL (70-110)
[2019-04-09] MEDS: CALCIUM ACETATE 667 MG CAPSULE PO SCH ×3 (07:52→17:23)
[2019-04-09] MEDS: HALOPERIDOL 5 MG TABLET PO SCH ×2 (08:02→21:31)
[2019-04-09] MEDS: TERBINAFINE HCL 1% 30 GM CREAM TP SCH ×2 (08:03→21:31)
[2019-04-09] MEDS: HEPARIN SODIUM,PORCINE 5,000 UNITS/ML VIAL SQ SCH ×3 (08:03→21:31)
[2019-04-09] MEDS: DOCUSATE SODIUM 100 MG CAPSULE PO SCH ×2 (08:04→21:00)
[2019-04-09] MEDS: FAMOTIDINE 10 MG/ML 2 ML VIAL IVP SCH (08:05)
[2019-04-09] MEDS: AmLODIPine BESYLATE 5 MG TABLET PO SCH (08:43)
[2019-04-09] MEDS: METOPROLOL TARTRATE 25 MG TABLET PO SCH ×2 (08:43→21:31)
[2019-04-09] MEDS: CloNIDine HCL 0.1 MG TABLET PO SCH (08:47)
[2019-04-09] MEDS: ALBUTEROL SULFATE 2.5 MG/0.5 ML NEB SOLUTION NEB SCH ×3 (09:55→21:17)
[2019-04-09] MEDS: ACETYLCYSTEINE 10% 100 MG/ML 4 ML NEB SOLUTION NEB SCH ×3 (09:55→21:17)
[2019-04-09] MEDS: IPRATROPIUM BROMIDE 0.5 MG/2.5 ML NEB SOLUTION NEB SCH ×3 (09:55→21:17)
[2019-04-09] MEDS: ALBUMIN HUMAN 25%-25GM/100ML 100 ML IV SCH ×3 (11:37→22:11)
[2019-04-09] MEDS: INSULIN LISPRO 100 UNITS/ML SQ PRN ×2 (11:52→18:15)
[2019-04-09 11:59] LABS: GLUCOSE,POINT OF CARE 143 MG/DL (70-110)
[2019-04-09] MEDS: AMINO ACIDS/PROTEIN HYDROLYS 30 ML TUBE PO SCH (13:49)
[2019-04-09 16:07] LABS: ABG A-A DIFF O2 60.2 mmHg (10-20.0); ABG HCO3 25.7 mmol/L (22.0-26.0); ABG METHEMOGLOBIN 0.3 % (0.0-1.5); ABG OXYGEN CONTENT 17.4 mL/dL (15.0-23.0); ABG OXYGEN SATURATION 96.3 % (95.0-98.0); ABG PCO2 51 mmHg (35-45); ABG PH 7.353 (7.35-7.450); PO2, ARTERIAL BG 93.5 mmHg (79.0-87.0); SOURCE, BLOOD GAS ARTERIAL; TEMPERATURE, FAHRENHEIT, BG 99.6 FAHREN (96.0-98.6)
[2019-04-09 16:11] LABS: O2 DEVICE,BLOOD GAS VENTILATOR (ROOM AIR); PEEP,BG 5 cm H2O; SITE, BLOOD GAS LFT RADIAL; VT, ABG 500 ml
[2019-04-09] MEDS ORDERED: ACETYLCYSTEINE 10% 100 MG/ML 30 ML ORAL SOLUTION PO ONE (16:20)
[2019-04-09] MEDS ORDERED: LIDOCAINE 2% 30 ML JELLY TP ONE (16:20)
[2019-04-09 18:15] LABS: GLUCOSE,POINT OF CARE 124 MG/DL (70-110)
[2019-04-10] VITALS: BP 135/82
[2019-04-10 00:47] LABS: GLUCOSE,POINT OF CARE 110 MG/DL (70-110)
[2019-04-10] MEDS: PROPOFOL 1000 MG/ISO-OSM 100 ML IV PRN ×8 (02:52→23:02)
[2019-04-10] MEDS: PIPERACILLIN SODIUM/TAZOBACTAM 2.25 GM in DEXTROSE 5%-WATER 50 ML IV SCH ×3 (03:16→20:32)
[2019-04-10 04:00] VITALS: BP 129/78
[2019-04-10 05:07] LABS: BASOPHILS % (AUTO) 0.5 % (0.0-2.0); EOSINOPHILS % (AUTO) 10.3 % (1.0-6.0); HEMATOCRIT 34.9 % (41-53); HEMOGLOBIN 11.5 g/dL (13.5-17.5); LYMPHOCYTES # (AUTO) 0.6 K/uL (1.0-4.8); LYMPHOCYTES % (AUTO) 6.5 % (22.0-44.0); MEAN CORPUSCULAR HEMOGLOBIN 30.2 pg (26.0-34.0); MEAN CORPUSCULAR VOLUME 92 fL (80-100); MONOCYTES # (AUTO) 1.1 K/uL (0.1-1.0); MONOCYTES % (AUTO) 10.8 % (2.0-9.0); NEUTROPHILS # (AUTO) 7.1 K/uL (1.8-7.7); NEUTROPHILS % (AUTO) 71.9 % (40.0-70.0); PLATELET COUNT (AUTO) 169 K/uL (150-450); RED BLOOD CELL COUNT(AUTO) 3.81 MIL/uL (4.50-5.90); RED CELL DISTRIBUTION WIDTH 14.7 % (11.5-14.5)
[2019-04-10] MEDS: ALBUMIN HUMAN 25%-25GM/100ML 100 ML IV SCH ×4 (05:18→22:57)
[2019-04-10 05:25] LABS: CREATININE 7.19 mg/dL (0.60-1.30); MAGNESIUM 2.1 mg/dL (1.80-2.40); PHOSPHORUS 6.3 mg/dL (2.5-4.9)
[2019-04-10 06:06] LABS: GLUCOSE,POINT OF CARE 120 MG/DL (70-110)
[2019-04-10] MEDS: IPRATROPIUM BROMIDE 0.5 MG/2.5 ML NEB SOLUTION NEB SCH ×3 (07:21→20:51)
[2019-04-10] MEDS: ALBUTEROL SULFATE 2.5 MG/0.5 ML NEB SOLUTION NEB SCH ×3 (07:21→20:51)
[2019-04-10] MEDS: ACETYLCYSTEINE 10% 100 MG/ML 4 ML NEB SOLUTION NEB SCH ×5 (07:21→20:51)
[2019-04-10 08:00] VITALS: BP 122/71
[2019-04-10] MEDS: CALCIUM ACETATE 667 MG CAPSULE PO SCH ×3 (08:01→16:09)
[2019-04-10] MEDS: HEPARIN SODIUM,PORCINE 5,000 UNITS/ML VIAL SQ SCH ×3 (08:02→22:25)
[2019-04-10] MEDS: FAMOTIDINE 10 MG/ML 2 ML VIAL IVP SCH (08:02)
[2019-04-10] MEDS: METOPROLOL TARTRATE 25 MG TABLET PO SCH ×2 (08:03→22:24)
[2019-04-10] MEDS: HALOPERIDOL 5 MG TABLET PO SCH ×2 (08:03→22:54)
[2019-04-10] MEDS: DOCUSATE SODIUM 100 MG CAPSULE PO SCH ×2 (08:03→22:24)
[2019-04-10] MEDS: TERBINAFINE HCL 1% 30 GM CREAM TP SCH ×2 (08:06→22:25)
[2019-04-10] MEDS ORDERED: 0.9% SODIUM CHLORIDE 5 ML NEB SOLUTION NEB ONE (08:16)
[2019-04-10 12:00] VITALS: BP_SYST 157; BP_SYST 159; BP_DIAS 100
[2019-04-10 12:46] LABS: GLUCOSE,POINT OF CARE 128 MG/DL (70-110)
[2019-04-10] MEDS: AMINO ACIDS/PROTEIN HYDROLYS 30 ML TUBE PO SCH (13:14)
[2019-04-10] MEDS ORDERED: SODIUM CHLORIDE 0.9% 250 ML IV ONE (15:57)
[2019-04-10 16:00] VITALS: BP 133/78
[2019-04-10] MEDS ORDERED: HEPARIN SODIUM,PORCINE 1,000 UNITS/ML VIAL IVP ONE (17:05)
[2019-04-10 20:00] VITALS: BP 127/89
[2019-04-11] VITALS (7 sets, daily range): BP systolic 78–162; BP diastolic 62–102
[2019-04-11] MEDS: ACETYLCYSTEINE 10% 100 MG/ML 4 ML NEB SOLUTION NEB SCH ×4 (02:00→20:19)
[2019-04-11] MEDS: PROPOFOL 1000 MG/ISO-OSM 100 ML IV PRN ×9 (02:28→23:56)
[2019-04-11] MEDS: PIPERACILLIN SODIUM/TAZOBACTAM 2.25 GM in DEXTROSE 5%-WATER 50 ML IV SCH ×3 (04:17→19:47)
[2019-04-11 04:35] LABS: GLUCOSE,POINT OF CARE 111 MG/DL (70-110)
[2019-04-11 04:56] LABS: BASOPHILS % (AUTO) 0.3 % (0.0-2.0); EOSINOPHILS % (AUTO) 11.7 % (1.0-6.0); HEMOGLOBIN 11.4 g/dL (13.5-17.5); LYMPHOCYTES # (AUTO) 0.5 K/uL (1.0-4.8); LYMPHOCYTES % (AUTO) 6.5 % (22.0-44.0); MEAN CORPUSCULAR HEMOGLOBIN 30.7 pg (26.0-34.0); MEAN CORPUSCULAR HGB CONC 33.5 G/dL (31.0-37.0); MEAN CORPUSCULAR VOLUME 92 fL (80-100); MONOCYTES # (AUTO) 0.9 K/uL (0.1-1.0); MONOCYTES % (AUTO) 11.2 % (2.0-9.0); NEUTROPHILS # (AUTO) 5.9 K/uL (1.8-7.7); NEUTROPHILS % (AUTO) 70.3 % (40.0-70.0); PLATELET COUNT (AUTO) 134 K/uL (150-450); RED BLOOD CELL COUNT(AUTO) 3.72 MIL/uL (4.50-5.90); RED CELL DISTRIBUTION WIDTH 14.3 % (11.5-14.5)
[2019-04-11 05:08] LABS: ALBUMIN 3.4 g/dL (3.4-5.0); BILIRUBIN,TOTAL 0.6 mg/dL (0.1-1.0); CALCIUM, TOTAL 9.3 mg/dL (8.8-10.5); CREATININE 5.11 mg/dL (0.60-1.30); MAGNESIUM 1.7 mg/dL (1.80-2.40); PHOSPHORUS 4.8 mg/dL (2.5-4.9); TOTAL PROTEIN, SERUM 8.4 g/dL (6.4-8.2)
[2019-04-11 05:40] LABS: GLUCOSE,POINT OF CARE 85 MG/DL (70-110)
[2019-04-11] MEDS: ALBUMIN HUMAN 25%-25GM/100ML 100 ML IV SCH ×4 (05:58→23:02)
[2019-04-11 06:08] LABS: INR 1.1 (0.9-1.1); PROTHROMBIN TIME 10.9 SEC (9.4-11.6)
[2019-04-11] MEDS ORDERED: LIDOCAINE/PF 1% 30 ML VIAL ONE (06:51)
[2019-04-11] MEDS ORDERED: SODIUM CHLORIDE 0.9% 1,000 ML ONE (06:52)
[2019-04-11 06:59] LABS: GLUCOSE,POINT OF CARE 108 MG/DL (70-110)
[2019-04-11] MEDS ORDERED: OXYMETAZOLINE HCL 0.05% 15 ML NASAL SPRAY NASAL ONE (07:47)
[2019-04-11] MEDS: CALCIUM ACETATE 667 MG CAPSULE PO SCH ×3 (08:00→17:23)
[2019-04-11] MEDS ORDERED: MAGNESIUM SULFATE 1 GM in DEXTROSE 5%-WATER 50 ML IV ONE (08:45)
[2019-04-11] MEDS: DOCUSATE SODIUM 100 MG CAPSULE PO SCH ×2 (09:00→19:48)
[2019-04-11] MEDS: HEPARIN SODIUM,PORCINE 5,000 UNITS/ML VIAL SQ SCH ×4 (09:00→21:00)
[2019-04-11] MEDS: IPRATROPIUM BROMIDE 0.5 MG/2.5 ML NEB SOLUTION NEB SCH ×3 (09:11→20:18)
[2019-04-11] MEDS ORDERED: -POST HEMODIALYSIS NOTE- MISC SCH (09:12)
[2019-04-11] MEDS: ALBUTEROL SULFATE 2.5 MG/0.5 ML NEB SOLUTION NEB SCH ×3 (09:12→20:18)
[2019-04-11] MEDS: TERBINAFINE HCL 1% 30 GM CREAM TP SCH ×2 (09:38→21:58)
[2019-04-11] MEDS: METOPROLOL TARTRATE 25 MG TABLET PO SCH ×2 (09:38→19:48)
[2019-04-11] MEDS: HALOPERIDOL 5 MG TABLET PO SCH ×2 (09:38→21:00)
[2019-04-11] MEDS: FAMOTIDINE 10 MG/ML 2 ML VIAL IVP SCH (09:38)
[2019-04-11] MEDS ORDERED: ROCURONIUM BROMIDE 10 MG/ML 5 ML VIAL IVP ONE (12:00)
[2019-04-11] MEDS ORDERED: MIDAZOLAM HCL 2 MG/2 ML VIAL IVP ONE (12:00)
[2019-04-11] MEDS ORDERED: PROPOFOL 1% 20 ML VIAL IVP ONE (12:00)
[2019-04-11] MEDS ORDERED: EPHEDrine SULFATE 50 MG/ML VIAL IM ONE (12:00)
[2019-04-11] MEDS ORDERED: 0.9% SODIUM CHLORIDE 10 ML VIAL IVP ONE (12:00)
[2019-04-11] MEDS ORDERED: FentaNYL CITRATE-PF 100 MCG/2 ML VIAL IVP ONE (12:00)
[2019-04-11] MEDS ORDERED: PHENYLEPHRINE HCL 10 MG/ML VIAL IVP ONE (12:00)
[2019-04-11 13:22] LABS: GLUCOSE,POINT OF CARE 91 MG/DL (70-110)
[2019-04-11] MEDS: AMINO ACIDS/PROTEIN HYDROLYS 30 ML TUBE PO SCH (15:33)
[2019-04-11 19:41] LABS: GLUCOSE,POINT OF CARE 99 MG/DL (70-110)
[2019-04-12] VITALS (8 sets, daily range): BP systolic 88–150; BP diastolic 4–90
[2019-04-12 00:13] LABS: GLUCOSE,POINT OF CARE 99 MG/DL (70-110)
[2019-04-12] MEDS: IPRATROPIUM BROMIDE 0.5 MG/2.5 ML NEB SOLUTION NEB PRN (01:00)
[2019-04-12] MEDS: ACETYLCYSTEINE 10% 100 MG/ML 4 ML NEB SOLUTION NEB SCH ×4 (01:00→20:11)
[2019-04-12] MEDS: ALBUTEROL SULFATE 2.5 MG/0.5 ML NEB SOLUTION NEB PRN (01:00)
[2019-04-12] MEDS: PROPOFOL 1000 MG/ISO-OSM 100 ML IV PRN ×4 (04:24→21:25)
[2019-04-12] MEDS: PIPERACILLIN SODIUM/TAZOBACTAM 2.25 GM in DEXTROSE 5%-WATER 50 ML IV SCH (04:27)
[2019-04-12 05:03] LABS: BASOPHILS % (AUTO) 0.3 % (0.0-2.0); EOSINOPHILS % (AUTO) 11.3 % (1.0-6.0); HEMATOCRIT 33.4 % (41-53); LYMPHOCYTES # (AUTO) 0.5 K/uL (1.0-4.8); LYMPHOCYTES % (AUTO) 6.6 % (22.0-44.0); MEAN CORPUSCULAR HEMOGLOBIN 30.4 pg (26.0-34.0); MEAN CORPUSCULAR VOLUME 92 fL (80-100); MONOCYTES # (AUTO) 0.9 K/uL (0.1-1.0); MONOCYTES % (AUTO) 11.4 % (2.0-9.0); NEUTROPHILS # (AUTO) 5.5 K/uL (1.8-7.7); NEUTROPHILS % (AUTO) 70.4 % (40.0-70.0); PLATELET COUNT (AUTO) 122 K/uL (150-450); RED BLOOD CELL COUNT(AUTO) 3.63 MIL/uL (4.50-5.90); RED CELL DISTRIBUTION WIDTH 14.5 % (11.5-14.5)
[2019-04-12] MEDS: ALBUMIN HUMAN 25%-25GM/100ML 100 ML IV SCH (05:07)
[2019-04-12 05:19] LABS: ALBUMIN 3.8 g/dL (3.4-5.0); BILIRUBIN,TOTAL 0.7 mg/dL (0.1-1.0); CALCIUM, TOTAL 8.5 mg/dL (8.8-10.5); CREATININE 6.55 mg/dL (0.60-1.30); TOTAL PROTEIN, SERUM 8.5 g/dL (6.4-8.2)
[2019-04-12] MEDS: INSULIN LISPRO 100 UNITS/ML SQ PRN (05:40)
[2019-04-12] MEDS: MORPHINE SULFATE 2 MG/ML SYRINGE IVP PRN (05:44)
[2019-04-12 06:36] LABS: GLUCOSE,POINT OF CARE 101 MG/DL (70-110)
[2019-04-12] MEDS: CALCIUM ACETATE 667 MG CAPSULE PO SCH ×3 (08:00→17:09)
[2019-04-12] MEDS ORDERED: FUROSEMIDE 40 MG/4 ML VIAL IVP ONE (08:15)
[2019-04-12] MEDS: DOCUSATE SODIUM 100 MG CAPSULE PO SCH ×2 (09:00→20:33)
[2019-04-12] MEDS: HEPARIN SODIUM,PORCINE 5,000 UNITS/ML VIAL SQ SCH ×3 (09:00→20:44)
[2019-04-12] MEDS: METOPROLOL TARTRATE 25 MG TABLET PO SCH ×2 (09:00→20:43)
[2019-04-12] MEDS: IPRATROPIUM BROMIDE 0.5 MG/2.5 ML NEB SOLUTION NEB SCH ×3 (09:10→20:07)
[2019-04-12] MEDS: ALBUTEROL SULFATE 2.5 MG/0.5 ML NEB SOLUTION NEB SCH ×3 (09:10→20:07)
[2019-04-12] MEDS: TERBINAFINE HCL 1% 30 GM CREAM TP SCH ×2 (09:42→20:44)
[2019-04-12] MEDS: FAMOTIDINE 10 MG/ML 2 ML VIAL IVP SCH (09:42)
[2019-04-12] MEDS: HALOPERIDOL 5 MG TABLET PO SCH ×2 (09:42→20:43)
[2019-04-12] MEDS ORDERED: MANNITOL 25%-12.5 GM/50 ML VIAL IVP PRN (13:30)
[2019-04-12] MEDS ORDERED: HEPARIN SODIUM,PORCINE 1,000 UNITS/ML VIAL IVP ONE ×3 (13:30→18:10)
[2019-04-12] MEDS: HALOPERIDOL LACTATE 5 MG/ML VIAL IVP PRN (13:49)
[2019-04-12] MEDS: AMINO ACIDS/PROTEIN HYDROLYS 30 ML TUBE PO SCH (14:00)
[2019-04-12 16:17] LABS: APPEARANCE,URINE CLOUDY (CLEAR); BILIRUBIN,URINE NEGATIVE (NEGATIVE); GLUCOSE, URINE (UA) NEGATIVE (NEGATIVE); KETONES,URINE NEGATIVE (NEGATIVE); LEUKOCYTE ESTERASE ,URINE MODERATE (NEGATIVE); NITRATE,URINE NEGATIVE (NEGATIVE); OCCULT BLOOD,URINE LARGE (NEGATIVE); PH,URINE 5.5 (5.0-8.0); PROTEIN,URINE POS 1+ (NEGATIVE); UROBILINOGEN,URINE 0.2 mg/dL (<=1.0)
[2019-04-12 16:25] LABS: BACTERIA,URINE Few /HPF (None Seen); RBC,URINE 51-100 /HPF (0-2); SQUAMOUS EPITHELIAL CELL,UR Few /LPF (None Seen)
[2019-04-12 17:34] LABS: GLUCOSE,POINT OF CARE 87 MG/DL (70-110)
[2019-04-12 17:35] LABS: GLUCOSE,POINT OF CARE 82 MG/DL (70-110)
[2019-04-13] VITALS: BP 102/58
[2019-04-13] MEDS: PROPOFOL 1000 MG/ISO-OSM 100 ML IV PRN ×6 (00:21→22:10)
[2019-04-13] MEDS: ACETYLCYSTEINE 10% 100 MG/ML 4 ML NEB SOLUTION NEB SCH ×4 (02:12→20:04)
[2019-04-13] MEDS: ALBUTEROL SULFATE 2.5 MG/0.5 ML NEB SOLUTION NEB PRN (02:13)
[2019-04-13] MEDS: IPRATROPIUM BROMIDE 0.5 MG/2.5 ML NEB SOLUTION NEB PRN (02:13)
[2019-04-13 04:00] VITALS: BP 113/62
[2019-04-13 05:10] LABS: BASOPHILS % (AUTO) 0.5 % (0.0-2.0); EOSINOPHILS % (AUTO) 12.8 % (1.0-6.0); HEMATOCRIT 32.3 % (41-53); HEMOGLOBIN 10.6 g/dL (13.5-17.5); LYMPHOCYTES # (AUTO) 0.4 K/uL (1.0-4.8); LYMPHOCYTES % (AUTO) 4.9 % (22.0-44.0); MEAN CORPUSCULAR HEMOGLOBIN 30.3 pg (26.0-34.0); MEAN CORPUSCULAR HGB CONC 32.7 G/dL (31.0-37.0); MEAN CORPUSCULAR VOLUME 92 fL (80-100); MONOCYTES % (AUTO) 13.1 % (2.0-9.0); NEUTROPHILS # (AUTO) 5.3 K/uL (1.8-7.7); NEUTROPHILS % (AUTO) 68.7 % (40.0-70.0); PLATELET COUNT (AUTO) 127 K/uL (150-450); RED CELL DISTRIBUTION WIDTH 14.5 % (11.5-14.5)
[2019-04-13 05:23] LABS: CALCIUM, TOTAL 8.8 mg/dL (8.8-10.5); CREATININE 5.87 mg/dL (0.60-1.30); MAGNESIUM 1.8 mg/dL (1.80-2.40)
[2019-04-13 06:33] LABS: GLUCOSE,POINT OF CARE 95 MG/DL (70-110)
[2019-04-13 06:33] LABS: GLUCOSE,POINT OF CARE 98 MG/DL (70-110)
[2019-04-13 08:00] VITALS: BP 129/77
[2019-04-13] MEDS: IPRATROPIUM BROMIDE 0.5 MG/2.5 ML NEB SOLUTION NEB SCH ×3 (08:28→20:04)
[2019-04-13] MEDS: ALBUTEROL SULFATE 2.5 MG/0.5 ML NEB SOLUTION NEB SCH ×3 (08:28→20:04)
[2019-04-13] MEDS: HEPARIN SODIUM,PORCINE 5,000 UNITS/ML VIAL SQ SCH ×3 (09:00→21:00)
[2019-04-13] MEDS: DOCUSATE SODIUM 100 MG CAPSULE PO SCH ×2 (09:00→21:00)
[2019-04-13] MEDS: FAMOTIDINE 10 MG/ML 2 ML VIAL IVP SCH (10:09)
[2019-04-13] MEDS: METOPROLOL TARTRATE 25 MG TABLET PO SCH ×2 (10:09→21:37)
[2019-04-13] MEDS: HALOPERIDOL 5 MG TABLET PO SCH ×2 (10:09→21:37)
[2019-04-13] MEDS: SEVELAMER CARBONATE 800 MG POWDER PACKET NG SCH ×3 (10:09→21:37)
[2019-04-13] MEDS: TERBINAFINE HCL 1% 30 GM CREAM TP SCH ×2 (10:10→21:37)
[2019-04-13 12:00] VITALS: BP 111/70
[2019-04-13] MEDS: AMINO ACIDS/PROTEIN HYDROLYS 30 ML TUBE PO SCH (14:13)
[2019-04-13 16:00] VITALS: BP 111/72
[2019-04-13 17:50] LABS: CREATININE 6.19 mg/dL (0.60-1.30)
[2019-04-13 20:00] VITALS: BP 123/76
[2019-04-13 21:48] LABS: GLUCOSE,POINT OF CARE 97 MG/DL (70-110)
[2019-04-14] VITALS: BP 111/70
[2019-04-14] MEDS: PROPOFOL 1000 MG/ISO-OSM 100 ML IV PRN ×5 (01:43→18:31)
[2019-04-14] MEDS: ALBUTEROL SULFATE 2.5 MG/0.5 ML NEB SOLUTION NEB PRN ×2 (02:53→02:57)
[2019-04-14] MEDS: ACETYLCYSTEINE 10% 100 MG/ML 4 ML NEB SOLUTION NEB SCH ×3 (02:58→16:00)
[2019-04-14 04:00] VITALS: BP 120/72
[2019-04-14 04:21] LABS: GLUCOSE,POINT OF CARE 99 MG/DL (70-110)
[2019-04-14 05:44] LABS: BASOPHILS % (AUTO) 0.3 % (0.0-2.0); EOSINOPHILS % (AUTO) 13.6 % (1.0-6.0); HEMATOCRIT 33.6 % (41-53); HEMOGLOBIN 11.1 g/dL (13.5-17.5); LYMPHOCYTES # (AUTO) 0.4 K/uL (1.0-4.8); LYMPHOCYTES % (AUTO) 5.6 % (22.0-44.0); MEAN CORPUSCULAR HEMOGLOBIN 30.5 pg (26.0-34.0); MEAN CORPUSCULAR HGB CONC 33.1 G/dL (31.0-37.0); MEAN CORPUSCULAR VOLUME 92 fL (80-100); MONOCYTES # (AUTO) 1.1 K/uL (0.1-1.0); MONOCYTES % (AUTO) 14.4 % (2.0-9.0); NEUTROPHILS # (AUTO) 4.9 K/uL (1.8-7.7); NEUTROPHILS % (AUTO) 66.1 % (40.0-70.0); PLATELET COUNT (AUTO) 161 K/uL (150-450); RED BLOOD CELL COUNT(AUTO) 3.64 MIL/uL (4.50-5.90); RED CELL DISTRIBUTION WIDTH 14.5 % (11.5-14.5)
[2019-04-14 05:53] LABS: ALBUMIN 3.1 g/dL (3.4-5.0); BILIRUBIN,TOTAL 0.6 mg/dL (0.1-1.0); CALCIUM, TOTAL 9.2 mg/dL (8.8-10.5); CREATININE 6.49 mg/dL (0.60-1.30); TOTAL PROTEIN, SERUM 8.5 g/dL (6.4-8.2)
[2019-04-14 07:15] LABS: GLUCOSE,POINT OF CARE 108 MG/DL (70-110)
[2019-04-14 07:15] LABS: GLUCOSE,POINT OF CARE 92 MG/DL (70-110)
[2019-04-14 08:00] VITALS: BP 116/80
[2019-04-14] MEDS: METOPROLOL TARTRATE 25 MG TABLET PO SCH (08:27)
[2019-04-14] MEDS: HALOPERIDOL 5 MG TABLET PO SCH (08:27)
[2019-04-14] MEDS: SEVELAMER CARBONATE 800 MG POWDER PACKET NG SCH ×2 (08:27→16:39)
[2019-04-14] MEDS: FAMOTIDINE 10 MG/ML 2 ML VIAL IVP SCH (08:27)
[2019-04-14] MEDS: DOCUSATE SODIUM 100 MG CAPSULE PO SCH (08:28)
[2019-04-14] MEDS: HEPARIN SODIUM,PORCINE 5,000 UNITS/ML VIAL SQ SCH ×3 (08:28→16:39)
[2019-04-14] MEDS: TERBINAFINE HCL 1% 30 GM CREAM TP SCH (08:28)
[2019-04-14] MEDS: IPRATROPIUM BROMIDE 0.5 MG/2.5 ML NEB SOLUTION NEB SCH ×2 (08:45→16:00)
[2019-04-14] MEDS: ALBUTEROL SULFATE 2.5 MG/0.5 ML NEB SOLUTION NEB SCH ×2 (08:46→16:00)
[2019-04-14 10:19] LABS: C.DIFF GDH ANTIGEN, Stool Negative (Negative); C.DIFF TOXINS A&B, Stool Negative (Negative)
[2019-04-14 10:56] LABS: PROTHROMBIN TIME 10.4 SEC (9.4-11.6)
[2019-04-14 12:00] VITALS: BP 101/62
[2019-04-14] MEDS ORDERED: PANTOPRAZOLE SODIUM 40 MG/VIAL IVP SCH (13:00)
[2019-04-14] MEDS ORDERED: HEPARIN SODIUM,PORCINE 1,000 UNITS/ML 10 ML VIAL ONE (13:09)
[2019-04-14] MEDS ORDERED: LIDOCAINE/PF 1% 30 ML VIAL ONE (13:09)
[2019-04-14] MEDS ORDERED: HEPARIN SODIUM 1000 UNITS/NS 500 ML ONE (13:09)
[2019-04-14] MEDS: AMINO ACIDS/PROTEIN HYDROLYS 30 ML TUBE PO SCH (14:00)
[2019-04-14 16:00] VITALS: BP 102/67
[2019-04-14] MEDS ORDERED: HYDROGEN PEROXIDE 473 ML SOLUTION TP SCH (16:00)
[2019-04-14] MEDS ORDERED: POVIDONE-IODINE 10% 120 ML SOLUTION TP SCH (16:00)
[2019-04-14 18:31] VITALS: BP 100/64
[2019-04-14] MEDS ORDERED: ROCURONIUM BROMIDE 10 MG/ML 5 ML VIAL IVP ONE (19:49)
[2019-04-14] MEDS ORDERED: PROPOFOL 1% 20 ML VIAL IVP ONE (19:49)
[2019-04-15 06:39] LABS: GLUCOSE,POINT OF CARE 94 MG/DL (70-110)
[2019-04-15 06:39] LABS: GLUCOSE,POINT OF CARE 94 MG/DL (70-110)
== END 2019-04-14 19:50 | DRG 4 ==
LOC: EMS 15:26 → 5S 18:25 → ICU 03-26 08:15
PROVIDERS: ADMIT Internal Medicine; ATTEND Internal Medicine
PROC: 05HN33Z Insertion of Infusion Device into Left Internal Jugular Vein, Percutaneous Approach (ICD-10-PCS; 2019-03-26)
PROC: B544ZZA Ultrasonography of Left Jugular Veins, Guidance (ICD-10-PCS; 2019-03-26)
PROC: 5A1955Z Respiratory Ventilation, Greater than 96 Consecutive Hours (ICD-10-PCS; 2019-03-26)
PROC: 0BH17EZ Insertion of Endotracheal Airway into Trachea, Via Natural or Artificial Opening (ICD-10-PCS; 2019-03-26)
PROC: 5A09357 Assistance with Respiratory Ventilation, Less than 24 Consecutive Hours, Continuous Positive Airway Pressure (ICD-10-PCS; 2019-04-03)
PROC: 5A09357 Assistance with Respiratory Ventilation, Less than 24 Consecutive Hours, Continuous Positive Airway Pressure (ICD-10-PCS; 2019-04-04)
PROC: 5A09357 Assistance with Respiratory Ventilation, Less than 24 Consecutive Hours, Continuous Positive Airway Pressure (ICD-10-PCS; 2019-04-05)
PROC: 5A09357 Assistance with Respiratory Ventilation, Less than 24 Consecutive Hours, Continuous Positive Airway Pressure (ICD-10-PCS; 2019-04-06)
PROC: 5A09357 Assistance with Respiratory Ventilation, Less than 24 Consecutive Hours, Continuous Positive Airway Pressure (ICD-10-PCS; 2019-04-07)
PROC: 02HV33Z Insertion of Infusion Device into Superior Vena Cava, Percutaneous Approach (ICD-10-PCS; 2019-04-07)
PROC: B548ZZA Ultrasonography of Superior Vena Cava, Guidance (ICD-10-PCS; 2019-04-07)
PROC: 5A1D70Z Performance of Urinary Filtration, Intermittent, Less than 6 Hours Per Day (ICD-10-PCS; 2019-04-07)
PROC: 0B9J8ZZ Drainage of Left Lower Lung Lobe, Via Natural or Artificial Opening Endoscopic (ICD-10-PCS; 2019-04-08)
PROC: 0B9F8ZZ Drainage of Right Lower Lung Lobe, Via Natural or Artificial Opening Endoscopic (ICD-10-PCS; 2019-04-08)
PROC: 0BH17EZ Insertion of Endotracheal Airway into Trachea, Via Natural or Artificial Opening (ICD-10-PCS; 2019-04-08)
PROC: 5A09357 Assistance with Respiratory Ventilation, Less than 24 Consecutive Hours, Continuous Positive Airway Pressure (ICD-10-PCS; 2019-04-08)
PROC: 5A1955Z Respiratory Ventilation, Greater than 96 Consecutive Hours (ICD-10-PCS; 2019-04-08)
PROC: 5A1D70Z Performance of Urinary Filtration, Intermittent, Less than 6 Hours Per Day (ICD-10-PCS; 2019-04-08)
PROC: 5A1D70Z Performance of Urinary Filtration, Intermittent, Less than 6 Hours Per Day (ICD-10-PCS; 2019-04-10)
PROC: 0B110F4 Bypass Trachea to Cutaneous with Tracheostomy Device, Open Approach (ICD-10-PCS; 2019-04-11)
PROC: 5A1D70Z Performance of Urinary Filtration, Intermittent, Less than 6 Hours Per Day (ICD-10-PCS; 2019-04-12)
PROC: 0JH63XZ Insertion of Tunneled Vascular Access Device into Chest Subcutaneous Tissue and Fascia, Percutaneous Approach (ICD-10-PCS; 2019-04-14)
PROC: 02HV33Z Insertion of Infusion Device into Superior Vena Cava, Percutaneous Approach (ICD-10-PCS; 2019-04-14)
PROC: B5181ZA Fluoroscopy of Superior Vena Cava using Low Osmolar Contrast, Guidance (ICD-10-PCS; 2019-04-14)
PROC: B548ZZA Ultrasonography of Superior Vena Cava, Guidance (ICD-10-PCS; 2019-04-14)
PROC: 0DH63UZ Insertion of Feeding Device into Stomach, Percutaneous Approach (ICD-10-PCS; principal; 2019-04-14 12:00)
DX: A41.9 Sepsis, unspecified organism (principal); E43 Unspecified severe protein-calorie malnutrition; J96.02 Acute respiratory failure with hypercapnia; J69.0 Pneumonitis due to inhalation of food and vomit; N18.6 End stage renal disease; R65.21 Severe sepsis with septic shock; N17.0 Acute kidney failure with tubular necrosis; L03.115 Cellulitis of right lower limb; L03.116 Cellulitis of left lower limb; I13.2 Hypertensive heart and chronic kidney disease with heart failure and with stage 5 chronic kidney disease, or end stage renal disease; I50.30 Unspecified diastolic (congestive) heart failure; Z68.41 Body mass index [BMI] 40.0-44.9, adult; E66.01 Morbid (severe) obesity due to excess calories; E87.5 Hyperkalemia; E78.00 Pure hypercholesterolemia, unspecified; I25.10 Atherosclerotic heart disease of native coronary artery without angina pectoris; L40.9 Psoriasis, unspecified; F10.10 Alcohol abuse, uncomplicated; Y90.9 Presence of alcohol in blood, level not specified; E11.22 Type 2 diabetes mellitus with diabetic chronic kidney disease; F20.9 Schizophrenia, unspecified; D72.1 Eosinophilia; G47.33 Obstructive sleep apnea (adult) (pediatric); R13.10 Dysphagia, unspecified; E83.39 Other disorders of phosphorus metabolism; B35.3 Tinea pedis; E11.40 Type 2 diabetes mellitus with diabetic neuropathy, unspecified; Z79.84 Long term (current) use of oral hypoglycemic drugs; Z99.2 Dependence on renal dialysis; Z79.899 Other long term (current) drug therapy; Z28.21 Immunization not carried out because of patient refusal; T50.8X5A Adverse effect of diagnostic agents, initial encounter
CPT/HCPCS: 36245; 36556; 36561; 36600; 70450; 71250; 71275; 73701; 74177; 76937; 82565; 82570; 82805; 83036; 83605; 83735; 84100; 84300; 84443; 84520; 84540; 87015; 87040; 87070; 87081; 87086; 87101; 87205; 87206; 87220; 87252; 87324; 87340; 87449; 88108; 88312; 89050; 92526; 92610; 93005; 93306; 93970; 94002; 94003; 94640; 94660; 94667; 99291; G0378; J0360; J0690; J0878; J1200; J1630; J1644; J1940; J1956; J2060; J2250; J2270; J2310; J2370; J2405; J2543; J2704; J3010; J3370; J3475; J3490; J7030; J7040; J7050; J7060; P9046